=== PATIENT | female | born 1935 | race Caucasian/White ===

== ENCOUNTER 2019-06-11 10:17 | Inpatient (IN) | payer MEDICARE, SELFPAY ==
[2019-06-11] VITALS (50 sets, daily range): BP systolic 119–176; BP diastolic 72–127; PULSE 77–130; RESP 15–26; TEMP 36.6–36.8; O2SAT 18–99; BMI 32.5
--- NOTE | 2019-06-11 10:38 | XRR_ITS ---
PROCEDURE INFORMATION: Exam: XR Chest, 1 View Exam date and time: 06/11/2019 10:40 AM Age: 83 years old Clinical indication: Chest pain TECHNIQUE: Imaging protocol: XR of the chest Views: 1 view. COMPARISON: CR Chest 1 [place] [id number] 02/27/2014 2:37 PM FINDINGS: Lungs: There is mild pulmonary vascular congestion and bilateral perihilar haziness with coarse interstitial markings. Pleural space: No significant pleural effusion. No discernible pneumothorax. Heart/Mediastinum: The cardiac silhouette measures upper limits of normal in size and is unchanged. Bones/joints: There are degenerative changes of the spine and bilateral shoulders.. XR/XR chest 1V portable [id number] IMPRESSION: 1. Pulmonary vascular congestion with bilateral perihilar haziness. Correlate to exclude CHF versus nonspecific lower respiratory tract inflammation. Consider follow-up evaluation in 4-6 weeks to assess for resolution. 2. Findings which can be seen with COPD.
--- NOTE | 2019-06-11 10:38 | ECG_ITS ---
Measurements Intervals [place] Rate: 121 P: [place]: 0 QRS: 31 QRSD: 132 T: 28 QT: 329 QTc: 468 ATRIAL FIBRILLATION WITH RAPID VENTRICULAR RESPONSE INDETERMINATE AXIS INTRAVENTRICULAR CONDUCTION DELAY [130+ ms QRS DURATION] INTERPRETATION BASED ON A DEFAULT AGE OF 40 YEARS No previous ECG available for comparison Electronically Signed On 06-12-2019 17:18:08 APNS by Jonathan Mcmahon M.D. [id number]
--- NOTE | 2019-06-11 10:49 | ED_ITS ---
Entered by Liz Faustin, acting as scribe for Paul Keenan DO Jun 11, 2019 10:17 HPI - Chest Pain General: Chief Complaint: Chest Pain Stated Complaint: Heart is racing Time Seen by Provider: 06/11/19 10:38 History of Present Illness: HPI narrative: Patient came to the ER for complaint of chest pain. She states that she is actually not having pain just feels her heart racing and irregular. Patient's spouse says that she has a history of atrial fibrillation and that Dr. Castillo has spent the past week trying to slow her heart rate and gated regular. MD complaint: chest pain and other Onset (ago): day(s) Timing of current episode: constant Prior episodes: Yes Onset: during rest Pain location: substernal Pain radiation: none Severity: mild Quality: tightness and heaviness Relieving factors: nothing Exacerbating factors: nothing Associated symptoms: Reports dyspnea and palpitations Treatment prior to arrival: none Review of Systems General: Reports: 10 or more systems reviewed and unremarkable except in HPI and below Card: Reports: palpitations, irregular heart rhythm, swelling of feet/ankles, shortness of breath on exertion and shortness of breath when lying down Resp: Reports: shortness of breath PFSH ED PFSH: Statuses (acute, chronic, etc) shown below reflect problem list status as previously entered and may not be historically accurate Medical History CHF (congestive heart failure) (Acute) HTN (hypertension) (Acute) Hyperlipidemia (Acute) Varicose veins of bilateral lower extremities with pain (Acute) Family History Other CAD (coronary artery disease) Cancer Family history of premature coronary artery disease Hypertension Social History Smoking and tobacco status: former smoker Alcohol intake: current Physical Exam Narrative: EXAM NARRATIVE: Patient is awake and alert and does not appear to be in any severe distress Const: COMMON NORMALS: no apparent distress, average body habitus, oriented x3, no limitations, healthy appearing, alert and well nourished HENMT: COMMON NORMALS: normocephalic, head/scalp atraumatic, hearing grossly normal bilaterally, external ears normal, EAC's normal, TM's normal bilaterally, external nose normal, nasal mucous membranes and turbinates normal, moist oral mucous membranes, oropharynx normal, dentition normal and gingiva normal HEAD & SCALP: normocephalic and atraumatic NOSE: external nose normal and nasal mucous membranes and turbinates normal EXTERNAL EAR: Yes external ears normal EXTERNAL AUDITORY CANAL: EAC's normal TYMPANIC MEMBRANE: TM's normal bilaterally Eye: COMMON NORMALS: PERRL, EOMs intact bilaterally, conjunctivae normal, no scleral icterus, no papilledema, normal visual wing by confrontation and fundi normal bilaterally CONJUNCTIVA: Yes conjunctivae normal PUPIL: Yes PERRL DIRECT OPHTHALMOSCOPY: Yes no papilledema and Yes fundi normal bilaterally Neck/C-Spine: COMMON NORMALS: full ROM, no lymphadenopathy, supple, no meningeal signs, no JVD, thyroid normal and no carotid bruits THYROID: thyroid normal Chest: COMMONS NORMALS: inspection of chest normal and palpation of chest normal Resp: COMMON NORMALS: normal respiratory effort, no retractions, no use of accessory muscles, clear to auscultation bilaterally and percussion normal AUSCULTATION: clear to auscultation bilaterally PERCUSSION: percussion normal Cardio: COMMON NORMALS: no JVD, S1 normal heart sound, S2 normal heart sound, no gallops, no clicks, no murmurs, no rub and peripheral pulses 2+ throughout RATE: other (irregularly irregular) RHYTHM: abnormal rhythm irregularly irregular HEART SOUNDS: S1 normal and S2 normal PERIPHERAL PULSES: pulses 2+ throughout GI: COMMON NORMALS: normal to inspection, nondistended, normoactive bowel sounds, soft to palpation, non-tender, no hepatosplenomegaly, no masses and no bruits PALPATION: Yes soft and Yes no hepatosplenomegaly : COMMON NORMALS: Yes no CVA tenderness and Yes external appearance normal BLADDER/KIDNEY EXAM: Yes no CVA tenderness Back/Pelvis: COMMON NORMALS: no CVA tenderness, thoracic and lumbar spine normal to inspection, no thoracic nor lumbar tenderness, thoraco-lumbar ROM normal and straight leg raise negative bilaterally Extremity: COMMON NORMALS: normal to inspection, full ROM, normal capillary refill, no joint enlargement, no clubbing, cyanosis or edema, no calf tenderness and no pedal edema Neuro: COMMON NORMALS: oriented x3 SENSORIUM/ORIENTATION: Yes alert MENINGEAL SIGNS: Yes no meningeal signs Skin: COMMON NORMALS: no rashes or lesions noted, no wounds, skin turgor normal, no jaundice, no petechiae and no mottling GENERAL SKIN EXAM: no rashes or lesions noted and turgor normal Course Vital Signs: Vital signs: Vital Signs Pulse Rate 110 H 06/11/19 10:30 Respiratory Rate 18 06/11/19 10:30 Blood Pressure 175/127 06/11/19 10:30 Pulse Oximetry 96 06/11/19 10:30 MDM - Chest Pain Lab Data: Labs: Lab Results 06/11/19 06/11/19 06/11/19 Range/Units 10:44 10:44 10:44 WBC 6.1 (4.0-10.0) 10^3/ uL RBC 4.52 (4.1-5.3) 10^6/u L Hgb 13.9 (11.5-15.3) g/dL Hct 43.0 (37.0-47.0) % MCV 95.1 (81-99) fL MCH 30.8 (28.0-34.0) pg MCHC 32.3 (30.0-36.0) g/dL RDW 12.5 (12.1-15.1) % Plt Count 204 (130-400) 10^3/c mm MPV 11.0 H (7.4-10.4) fL Neut % (Auto) 71.3 % Lymph % (Auto) 19.1 % Gaines % (Auto) 7.8 % Eos % (Auto) 1.3 % Baso % (Auto) 0.3 % Neut # (Auto) 4.4 (1.8-7.7) 10^3/u L Lymph # (Auto) 1.2 (0.8-4.8) 10^3/u L Gaines # (Auto) 0.5 (0.2-0.9) 10^3/u L Eos # (Auto) 0.1 (0.0-0.8) 10^3/u L Baso # (Auto) 0.0 (0.0-0.1) 10^3/u L Nucleated RBC % (a uto) 0 % Nucleated RBCs # 0.0 /100WBC Sodium 138 (136-145) mmol/L Potassium 4.4 (3.5-5.1) mmol/L Chloride 102 (98-107) mmol/L Carbon Dioxide 25 (22-29) mmol/L Anion Gap 15.4 (5-19) BUN 16 (8-23) mg/dL Creatinine 1.0 H (0.5-0.9) mg/dL Glucose 128 H (74-106) mg/dL Calcium 9.9 (8.8-10.2) mg/Dl Total Bilirubin 0.6 (0.15-1.2) mg/dL AST 25 (0-32) U/L ALT 21 (0-33) U/L Alkaline Phosphata se 81 (35-105) IU/L Troponin T Baselin e 21 H (0-10) ng/mL NT-Pro-B Natriuret Pep 2310 H (0-450) pg/mL Total Protein 7.5 (6.6-8.7) g/dL Albumin 4.4 (3.5-5.2) g/dL Globulin 3.1 (1.3-4.6) g/dL Imaging Data^: CXR: My impression: CHF; Cardiomegaly Discharge Plan Discharge Prescriptions: No Action Xarelto 20 mg tablet 20 mg PO ONCE RF: 0 levothyroxine 25 mcg capsule 25 mcg PO DAILY RF: 0 spironolactone 25 mg tablet 25 mg PO DAILY RF: 0 furosemide [Lasix] 20 mg tablet 10 mg PO QAM RF: 0 carvedilol 12.5 mg tablet 12.5 mg PO BID RF: 0 flecainide 50 mg tablet 50 mg PO Q12H RF: 0 atorvastatin 40 mg tablet 40 mg PO ONCE RF: 0 potassium chloride [Klor-Con 10] 10 mEq tablet extended release 10 meq PO DAILY RF: 0 flecainide 100 mg tablet 100 mg PO DIRECTED 30 Days Qty: 60 RF: 3 Coding Level of Care Code ED Boiler House Supervisor for Chg Fwd Exam Problem Focused The documentation recorded by the [place] Carmen, accurately reflects the service I personally performed and the decisions made by Shlomo gurrola Donald P, DO Jun 11, 2019 10:17
[2019-06-11 10:54] LABS: Basophils % 0.3 %; Eosinophils # 0.1 10^3/uL (0.0-0.8); Eosinophils % 1.3 %; Hemoglobin 13.9 g/dL (11.5-15.3); Lymphocytes # 1.2 10^3/uL (0.8-4.8); Lymphocytes % 19.1 %; Mean Corpuscular HGB Conc 32.3 g/dL (30.0-36.0); Mean Corpuscular Hemoglobin 30.8 pg (28.0-34.0); Mean Corpuscular Volume 95.1 fL (81-99); Monocytes # 0.5 10^3/uL (0.2-0.9); Monocytes % 7.8 %; Neutrophils # 4.4 10^3/uL (1.8-7.7); Neutrophils % 71.3 %; Nucleated Red Blood Cells % 0 %; Platelet Count 204 10^3/cmm (130-400); Red Blood Count 4.52 10^6/uL (4.1-5.3); Red Cell Distribution Width 12.5 % (12.1-15.1); White Blood Count 6.1 10^3/uL (4.0-10.0)
[2019-06-11 11:17] LABS: Troponin(5th) Baseline 21 ng/mL (0-10)
[2019-06-11 11:26] LABS: Alanine Aminotransferase 21 U/L (0-33); Albumin Level 4.4 g/dL (3.5-5.2); Alkaline Phosphatase 81 IU/L (35-105); Anion Gap 15.4 (5-19); Aspartate Amino Transferase 25 U/L (0-32); Blood Urea Nitrogen 16 mg/dL (8-23); Calcium 9.9 mg/Dl (8.8-10.2); Carbon Dioxide 25 mmol/L (22-29); Chloride 102 mmol/L (98-107); Globulin 3.1 g/dL (1.3-4.6); Glucose 128 mg/dL (74-106); NT Pro B Type Natriuretic Pept 2310 pg/mL (0-450); Potassium 4.4 mmol/L (3.5-5.1); Sodium 138 mmol/L (136-145); Total Bilirubin 0.6 mg/dL (0.15-1.2); Total Protein 7.5 g/dL (6.6-8.7)
--- NOTE | 2019-06-11 11:56 | PC.NURSE ---
Pt ambulated to BR with SBA to give urine sample. Clean catch kit given with instructions provided.
--- NOTE | 2019-06-11 12:38 | ECG_ITS ---
Measurements Intervals [place] Rate: 104 P: [place]: 0 QRS: 36 QRSD: 114 T: 50 QT: 366 QTc: 483 ATRIAL FIBRILLATION WITH RAPID VENTRICULAR RESPONSE INDETERMINATE AXIS MODERATE INTRAVENTRICULAR CONDUCTION DELAY [110+ ms QRS DURATION] MODERATE ST DEPRESSION [0.05+ mV ST DEPRESSION] No previous ECG available for comparison Electronically Signed On 06-12-2019 17:26:13 MELT HOUSE DRAG OPERATOR by Jonathan Mcmahon M.D. [id number]
[2019-06-11 13:22] LABS: Troponin 5 2HR 19.88 ng/mL (0-10)
[2019-06-11 13:25] LABS: Troponin 5 2HR Delta -1.12 ABS# (0-10)
[2019-06-11 13:37] LABS: Add Urine Microscopic? YES; Bilirubin Urine Neg (NEGATIVE); Blood Urine 2+ (Negative); Glucose Urine UA Norm (Normal); Ketones Urine Negative (Negative); Leukocyte Esterase Urine Negative (Negative); Nitrate Urine Negative (Negative); Protein Urine Neg (Negative); Urine Appearance Clear (CLEAR); Urine Color Yellow (Yellow); Urobilinogen Urine Norm (Negative); pH Urine 6 (5-7)
[2019-06-11 13:39] LABS: Add Urine Culture? Yes; Bacteria Urine 1+; WBC Urine 0-4 /hpf (0-5)
--- NOTE | 2019-06-11 16:38 | ECG_ITS ---
Measurements Intervals [place] Rate: 91 P: [place]: 0 QRS: 47 QRSD: 109 T: 60 QT: 391 QTc: 483 ATRIAL FIBRILLATION INDETERMINATE AXIS MODERATE ST DEPRESSION [0.05+ mV ST DEPRESSION] No previous ECG available for comparison Electronically Signed On 06-12-2019 17:26:27 CREDIT NEGOTIATOR by Jonathan Mcmahon M.D. [id number]
[2019-06-11 17:30] LABS: Troponin 5 6HR 16.66 ng/L (0-10)
[2019-06-11 17:53] LABS: Troponin 5 6HR Delta -4.34 ng/L (0-12)
--- NOTE | 2019-06-11 18:22 | PM.HP ---
Providers/Chief Complaint Admitting Physician: Ca Walsh MD Primary Care Provider: Gurwinder Cotton MD Chief Complaint: Heart is racing History of Present Illness Karime Cisse is a 83 year old female with PMH uncontrolled atrial fibrillation, diastolic CHF, hypertension who was recently seen as an outpatient by cardiology on May for c/o palpitations and subjective shortness of breath. At the time she appeared to be in A. fib with fast ventricular response @ 116 bpm. EKG was also performed today which showed A. fib with rapid ventricular response. She c/o subjective SOB and chest discomfort during times of increased HR. She feels most comfortbale when HR is up to 90bpm. She denies PND orthopnea presyncope or syncope. She is on anticoagulation with Xarelto. On last visit her dose of flecainide was increased to three times a day, and through the week, she reports this has been increased to 5 times a day as instructed by the office over the phone. Denies any current chest pain, dyspnea. Review of Systems General: Reports: 10 or more systems reviewed and unremarkable except in HPI and below Const: Denies: fever, chills or body aches Card: Reports: palpitations and irregular heart rhythm; Denies: chest pain, edema, swelling of feet/ankles, lightheadedness, syncope or shortness of breath on exertion Resp: Denies: shortness of breath, productive cough, non-productive cough, wheezing or stridor GI: Denies: abdominal pain, nausea, vomiting, vomiting blood, coffee grounds in vomit or difficulty swallowing : Denies: flank pain, difficulty urinating, painful urination or urinary frequency Neuro: Denies: headache, numbness in extremities, weakness in extremities, changes in sensation, lack of coordination or difficulty walking Psych: Denies: anxiety, depression or mood swings Endo: Denies: excessive urination, excessive thirst or tired all the time Medications/Allergies Allergies Allergy/AdvReac Type Severity Reaction Status Date / Time codeine Allergy ALGY-Difficulty Verified 06/11/19 10:32 [From [employer] with Codeine] Breathing pseudoephedrine Allergy ALGY-Difficulty Verified 06/11/19 10:32 [From Sudafed] Breathing PFSH Acute PFSH: Statuses (acute, chronic, etc) shown below reflect problem list status as previously entered and may not be historically accurate Medical History CHF (congestive heart failure) (Acute) HTN (hypertension) (Acute) Hyperlipidemia (Acute) Varicose veins of bilateral lower extremities with pain (Acute) Family History Other CAD (coronary artery disease) Cancer Family history of premature coronary artery disease Hypertension Social History Smoking and tobacco status: former smoker Alcohol intake: current Vitals/I&O/Wt Last Vital Signs Pulse 83 06/11/19 17:45 Resp 19 H 06/11/19 16:00 BP 142/95 06/11/19 16:00 Pulse Ox 98 06/11/19 17:45 06/11/19 06/11/19 06/11/19 06:59 14:59 22:59 Intake Total 68.333 / 68.333 Balance 68.333 / 68.333 Weight last 48 hrs Weight 99.79 kg Physical Exam Const: COMMON NORMALS: no apparent distress, average body habitus, oriented x3 and alert HENMT: COMMON NORMALS: normocephalic and head/scalp atraumatic Eye: COMMON NORMALS: PERRL and EOMs intact bilaterally Chest: COMMONS NORMALS: inspection of chest normal and palpation of chest normal Resp: COMMON NORMALS: normal respiratory effort, no retractions, no use of accessory muscles and clear to auscultation bilaterally Cardio: COMMON NORMALS: no JVD, regular rate, regular rhythm, S1 normal heart sound, S2 normal heart sound and no gallops GI: COMMON NORMALS: normal to inspection, nondistended, normoactive bowel sounds, soft to palpation and non-tender Neuro: COMMON NORMALS: oriented x3, CN's II-XII intact bilaterally, moves all extremities, no focal motor deficits, no sensory deficits noted, deep tendon reflexes 2+ bilaterally and gait normal Psych: COMMON NORMALS: mental status grossly normal and thought process normal Data : 06/11/19 10:44 06/11/19 10:44 A&P Assessment and plan (1) Atrial fibrillation: Chronic, long standing Patient has been started on Cardizem infusion in the ED. Currently at 10mg/hr, with HR 70-80. BP 140/95mmhg. Will titrate as needed No complaints at current HR, states she starts to feel symptomatic at HR 120s Continue home dose of carvedilol and Flecainide Continue Xarelto for anticoagulation Troponin minimally elevated likely 2/2 RVR. No current chest pain Status: Acute Qualifiers: Atrial fibrillation type: unspecified persistent Qualified Code(s): I48.19 - Other persistent atrial fibrillation Code(s): I48.91 - Unspecified atrial fibrillation (2) CHF (congestive heart failure): Currently appears euvolemic. Status: Acute Qualifiers: Heart failure type: combined systolic and diastolic Heart failure chronicity: acute Qualified Code(s): I50.41 - Acute combined systolic (congestive) and diastolic (congestive) heart failure Code(s): I50.9 - Heart failure, unspecified (3) HTN (hypertension): Status: Acute Qualifiers: Hypertension type: essential hypertension Qualified Code(s): I10 - Essential (primary) hypertension Code(s): I10 - Essential (primary) hypertension Attestations Medical Necessity Statement*: anticipate > 2 midnight for management of A fib with RVR, HR optimization Coding Level of Care Code Acute Terrazzo Tile Maker for Chg Fwd Diagnoses Atrial fibrillation I48.19 Atrial fibrillation type: unspecified persistent CHF (congestive heart failure) I50.41 Heart failure type: combined systolic and diastolic Heart failure chronicity: acute HTN (hypertension) I10 Hypertension type: essential hypertension
[2019-06-11] MEDS: carvedilol 12.5 mg Tablet PO (20:54)
[2019-06-11] MEDS: flecainide 100 mg Tablet 50 MG PO (20:54)
--- NOTE | 2019-06-11 23:36 | PC.NURSE ---
Cardizem drip shut off at 2300. Patient's heart rate has been in the 80s in a-fib.
[2019-06-12] VITALS (7 sets, daily range): BP systolic 92–150; BP diastolic 44–94; PULSE 58–125; RESP 17–26; TEMP 36.4–36.8; O2SAT 95–98
[2019-06-12] MEDS: flecainide 100 mg Tablet 50 MG PO ×2 (05:13→11:49)
[2019-06-12] MEDS: FUROsemide 20 mg Tablet 10 MG PO (05:13)
[2019-06-12 08:02] LABS: Basophils % 0.5 %; Eosinophils # 0.1 10^3/uL (0.0-0.8); Hematocrit 45.1 % (37.0-47.0); Hemoglobin 14.7 g/dL (11.5-15.3); Lymphocytes # 1.2 10^3/uL (0.8-4.8); Lymphocytes % 19.9 %; Mean Corpuscular HGB Conc 32.6 g/dL (30.0-36.0); Mean Corpuscular Hemoglobin 31.8 pg (28.0-34.0); Mean Corpuscular Volume 97.6 fL (81-99); Mean Platelet Volume 11.1 fL (7.4-10.4); Monocytes # 0.5 10^3/uL (0.2-0.9); Monocytes % 8.9 %; Neutrophils # 4.1 10^3/uL (1.8-7.7); Neutrophils % 68.5 %; Nucleated Red Blood Cells % 0 %; Platelet Count 194 10^3/cmm (130-400); Red Blood Count 4.62 10^6/uL (4.1-5.3); Red Cell Distribution Width 12.6 % (12.1-15.1); White Blood Count 5.9 10^3/uL (4.0-10.0)
[2019-06-12 08:05] LABS: Alanine Aminotransferase 16 U/L (0-33); Alkaline Phosphatase 79 IU/L (35-105); Aspartate Amino Transferase 20 U/L (0-32); Blood Urea Nitrogen 11 mg/dL (8-23); Calcium 9.8 mg/Dl (8.8-10.2); Carbon Dioxide 27 mmol/L (22-29); Chloride 101 mmol/L (98-107); Globulin 3.1 g/dL (1.3-4.6); Glucose 115 mg/dL (74-106); Sodium 138 mmol/L (136-145); Total Bilirubin 0.7 mg/dL (0.15-1.2); Total Protein 7.1 g/dL (6.6-8.7)
[2019-06-12] MEDS: rivaroxaban 10 mg Tablet 20 MG PO (09:49)
[2019-06-12] MEDS: spironolactone 25 mg Tablet PO (09:49)
[2019-06-12] MEDS: levothyroxine 25 mcg Tablet PO (09:49)
[2019-06-12] MEDS: carvedilol 12.5 mg Tablet PO (09:50)
--- NOTE | 2019-06-12 09:50 | PM.PN ---
Subjective Subjective: Interval history: Patient states she is feeling little bit better. Heart is not racing as bad. No chest pain or shortness of breath. No fevers or chills. Vitals/I&O/Wt Last Vital Signs Temp 98.0 F 06/12/19 07:13 Pulse 111 H 06/12/19 07:13 Resp 17 06/12/19 07:13 BP 126/78 06/12/19 07:13 Pulse Ox 97 06/12/19 07:13 06/11/19 06/12/19 06/12/19 22:59 06:59 14:59 Intake Total 90.000 / 190.000 100 / 190.000 Balance 90.000 / 190.000 100 / 190.000 Weight last 48 hrs Weight 220 lb Physical Exam Narrative: EXAM NARRATIVE: General: No acute distress, Alert. Well nourished. Heart: Atrial fibrillation with a tachycardic rate. No murmurs, rubs or gallops. Normal capillary refill. Lungs: Clear to auscultation. No wheezes, rhonchi or rales. Abdomen: Positive bowel sounds. Non-tender, non-distended. No hepatosplenomegaly. No gaurding. Extremities: No clubbing, cyanosis, or edema. Negative Fareed's Data : 06/12/19 07:35 06/12/19 07:35 Micro: Microbiology 06/11/19 12:07 Urine Culture - Preliminary Urine,Clean Catch A&P Assessment and plan (1) Atrial fibrillation: -Looks like patient is been weaned off the Cardizem drip but still having heart rates of 1 10-1 20. We will go ahead and consult cardiology to manage her treatment of this. Disposition per their recommendations. Status: Acute Qualifiers: Atrial fibrillation type: unspecified persistent Qualified Code(s): I48.19 - Other persistent atrial fibrillation Code(s): I48.91 - Unspecified atrial fibrillation (2) CHF (congestive heart failure): Stable Status: Acute Qualifiers: Heart failure type: combined systolic and diastolic Heart failure chronicity: acute Qualified Code(s): I50.41 - Acute combined systolic (congestive) and diastolic (congestive) heart failure Code(s): I50.9 - Heart failure, unspecified (3) HTN (hypertension): Status: Acute Qualifiers: Hypertension type: essential hypertension Qualified Code(s): I10 - Essential (primary) hypertension Code(s): I10 - Essential (primary) hypertension Attestations Medical Necessity Statement*: patient is an 83-year-old female with A. fib with RVR requiring continued inpatient treatments and monitoring. Coding Level of Care Code Acute Stack Yield Engineer for Chg Fwd Diagnoses Atrial fibrillation I48.19 Atrial fibrillation type: unspecified persistent CHF (congestive heart failure) I50.41 Heart failure type: combined systolic and diastolic Heart failure chronicity: acute HTN (hypertension) I10 Hypertension type: essential hypertension
--- NOTE | 2019-06-12 09:52 | P.CONIM_ITS ---
Providers/Reason For Consult Consulting Physican/Specialty*: Jai Lambert MD/cardiology Reason for Consult*: Atrial fibrillation/rapid ventricular rate Attending Physician: Amaury Carranza MD Primary Care Provider: Gurwinder Cotton MD History of Present Illness History of Present Illness Karime Cisse is a 83 year old female with a history of hypertension, atrial fibrillation and varicose veins, is admitted to the hospital through the emergency room, where she presented with complaints of palpitations/generalized weakness. Patient was found to be in atrial fibrillation with rapid ventricular rate. She has been taking a fairly high dose of flecainide as an outpatient. She was started on IV Cardizem here in the hospital. Her heart rate still remains uncontrolled. Cardiology consult is requested for further cardiac evaluation recommendations. Patient was diagnosed with atrial fibrillation approximately 14 years ago. She has been taking flecainide 50 mg p.o. twice daily up until recently when she was found to be in atrial fibrillation by Dr. Mosquera. The dose of the flecainide was increased gradually. Currently she is taking 250 mg of flecainide. He never had any radiofrequency ablation or electrical cardioversion. Since the hospital admission, she seems to be feeling somewhat better. Has not had any dizziness or syncopal episodes. No chest pain or unusual shortness of breath. She has a history of varicose veins and had sclerotherapy couple of years ago. Review of Systems Const: Reports: other (Anorexia); Denies: fever, chills, change in appetite, fatigue or night sweats Eyes: Denies: change in vision, blurry vision or eye discomfort ENMT: Denies: bleeding gums, nose bleeds or other (Spinning Sensation, Trouble Swallowing) Card: Denies: syncope, pre-syncope, shortness of breath when lying down or leg pain with exertion Resp: Denies: productive cough, change in phlegm color or coughing up blood GI: Denies: vomiting, vomiting blood, bloating, blood in stool or black tarry stool : Denies: blood in urine or vaginal bleeding Musc: Denies: neck pain, extremity pain, extremity swelling, redness, muscle cramps, muscle weakness or other (Neck Pain or Swollen Glands) Skin/Breast: Denies: rash, itching, redness, new lesion, changes in skin color, yellow skin, nail changes or breast mass/lump Neuro: Denies: headache, changes in sensation, lack of coordination, frequent falls, dizziness, vertigo, seizure-like activity or other (TIA, Numbness) Psych: Reports: other (Delusions, Disorientation, or Insomnia); Denies: visual hallucinations, auditory hallucinations or tactile hallucinations Endo: Denies: excessive urination, excessive thirst or other (Abnormal Hair Loss) Harsh/Lymph: Denies: easy bruising All/Imm: Denies: hives Meds/Allergies Home Medications and Allergies Home Medications Medication Instructions Recorded Confirmed Type carvedilol 12.5 mg tablet 12.5 mg PO BID 06/01/19 06/11/19 History flecainide 50 mg tablet 50 mg PO Q12H 06/01/19 06/11/19 History furosemide 20 mg tablet 10 mg PO QAM 06/01/19 06/11/19 History levothyroxine 25 mcg capsule 25 mcg PO DAILY cap 06/01/19 06/11/19 History potassium chloride 10 mEq 10 meq PO DAILY tab 06/01/19 06/11/19 History tablet,extended release rivaroxaban 20 mg tablet 20 mg PO DAILY 06/01/19 06/11/19 History spironolactone 25 mg tablet 25 mg PO DAILY tab 06/01/19 06/11/19 History Allergies Allergy/AdvReac Type Severity Reaction Status Date / Time codeine Allergy ALGY-Difficulty Verified 06/11/19 10:32 [From [employer] with Codeine] Breathing pseudoephedrine Allergy ALGY-Difficulty Verified 06/11/19 10:32 [From Sudafed] Breathing Current Medications Current Medications Generic Name Dose Route Start Last Admin Trade Name Марина PRN Reason Stop Dose Admin Carvedilol 12.5 mg 06/11/19 20:44 06/12/19 09:50 Coreg PO 12.5 mg BID NINFA Administration Flecainide Acetate 50 mg 06/11/19 20:30 06/12/19 05:13 Tambocor PO 50 mg Q8H NINFA Administration Furosemide 10 mg 06/12/19 06:00 06/12/19 05:13 Lasix PO 10 mg QAM NINFA Administration Diltiazem HCl 125 mg/ Sodium 125 mls @ 10 mls/hr 06/11/19 11:00 06/12/19 05:11 Chloride IV Not Given .[id number] NINFA Protocol 10 MG/HR Levothyroxine Sodium 25 mcg 06/12/19 09:00 06/12/19 09:49 Synthroid PO 25 mcg DAILY NINFA Administration Spironolactone 25 mg 06/12/19 09:00 06/12/19 09:49 Aldactone PO 25 mg DAILY NINFA Administration PFSH Acute PFSH: Statuses (acute, chronic, etc) shown below reflect problem list status as previously entered and may not be historically accurate Medical History CHF (congestive heart failure) (Acute) HTN (hypertension) (Acute) Hyperlipidemia (Acute) Varicose veins of bilateral lower extremities with pain (Acute) Surgical History (Updated 06/12/19 @ 18:12 by Alida Lambert MD) H/O knee surgery (Acute) Hx of cholecystectomy (Acute) Status post ablation of incompetent vein using laser (Acute) Family History (Updated 06/13/19 @ 00:32 by Alida Lambert MD) Father CAD (coronary artery disease) Having heart follow-up in his 60s. Family/Other CAD (coronary artery disease) Dad's brother had a heart attack in his 30s Son Atrial fibrillation, Onset Age: 35 Other Cancer Family history of premature coronary artery disease Hypertension Social History Smoking and tobacco status: former smoker Alcohol intake: current Vitals/I&O/Wt Last Vital Signs Temp 98.0 F 06/12/19 07:13 Pulse 111 H 06/12/19 07:13 Resp 17 06/12/19 07:13 BP 126/78 06/12/19 07:13 Pulse Ox 97 06/12/19 07:13 06/11/19 06/12/19 06/12/19 22:59 06:59 14:59 Intake Total 90.000 / 90.000 100 / 190.000 Balance 90.000 / 90.000 100 / 190.000 Weight last 48 hrs Weight 220 lb Physical Exam Const: COMMON NORMALS: oriented x3, alert and well nourished GENERAL APPEARANCE: cooperative, well developed and well hydrated; not in distress HENMT: MOUTH: lip normal; no other (ulcers or bleeding) TEETH & GINGIVA: no other (bleeding observed and inflammation present) Eye: COMMON NORMALS: conjunctivae normal CONJUNCTIVA: Yes conjunctivae normal SCLERA: sclerae normal DIRECT OPHTHALMOSCOPY: Yes other (Fundus is not visualized) Neck/C-Spine: COMMON NORMALS: thyroid normal THYROID: thyroid normal CAROTIDS: Yes normal carotid upstroke (and runoff) Chest: COMMONS NORMALS: inspection of chest normal Resp: COMMON NORMALS: clear to auscultation bilaterally EFFORT & INSPECTION: Yes symmetric chest movement and No uses accessory muscles AUSCULTATION: clear to auscultation bilaterally, no crackles and no wheezes Cardio: COMMON NORMALS: regular rate and regular rhythm PALPATION: no heave, no palpable S3 and no thrill RATE: regular rate RHYTHM: regular rhythm BRUITS: no abdominal aortic bruits PERIPHERAL PULSES: femoral pu lses present positive bilateral (Normal), posterior tibial pulses present positive bilateral (Normal) and dorsalis pedis pulses present positive bilateral (Normal) GI: AUSCULTATION: Yes normoactive bowel sounds and No abdominal bruit PALPATION: No tender, No hepatomegaly, No splenomegaly and No mass Back/Pelvis: GENERAL BACK: No swelling and No other (joint deformities) THORACIC SPINE/UPPER BACK: No kyphosis present LUMBAR SPINE/LOWER BACK: No lumbar scoliosis present Extremity: OTHER: Features of chronic venous stasis. Spider veins in both legs. Trace edema bilaterally. No cyanosis. Neuro: COMMON NORMALS: oriented x3; negative for no focal motor deficits SENSORIUM/ORIENTATION: Yes alert MOTOR EXAM: No tremor Psych: MOOD & AFFECT: Yes other (Normal mood and affect) Skin: COMMON NORMALS: skin turgor normal; negative for no petechiae GENERAL SKIN EXAM: turgor normal, skin not dry and no erythema RASHES: rash noted NAILS: normal, no clubbing, not discolored and no other (cyanosis) Data Micro: Micro: Microbiology 06/11/19 12:07 Urine Culture - Pr eliminary Urine,Clean Catch A&P Assessment and plan (1) Atrial fibrillation with rapid ventricular response: Because of the rapid ventricular rate, I may start her on metoprolol 50 mg now and twice daily. Patient may be continued on the flecainide 150 mg p.o. twice daily. She needs to be closely monitored on telemetry. Other medication will be continued as it is. Status: Acute Code(s): I48.91 - Unspecified atrial fibrillation (2) HTN (hypertension): Current blood pressure is a stage II. Hopefully with the medication changes, we may have better control of the blood pressure. Status: Acute Qualifiers: Hypertension type: essential hypertension Qualified Code(s): I10 - Essential (primary) hypertension Code(s): I10 - Essential (primary) hypertension (3) Hyperlipidemia: Patient was taken off the atorvastatin recently for possible statin induced muscle pains, by may hold off on any statin drugs at this time. Status: Acute Qualifiers: Hyperlipidemia type: mixed hyperlipidemia Qualified Code(s): E78.2 - Mixed hyperlipidemia Code(s): E78.5 - Hyperlipidemia, unspecified (4) CHF (congestive heart failure): Patient was found to have elevated BNP of 2310. Was likely this is secondary to the atrial fibrillation. 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 She may not require any specific intervention at this time. Status: Acute Code(s): I83.813 - Varicose veins of bilateral lower extremities with pain Additional A&P Information Based on the clinical response to the above medication changes, further recommendations will be made. Thank you for the opportunity to evaluate this patient and make these recommendations Consult Attestations Medical Necessity Statement: Patient requires continued hospital stay for close monitoring and further management Coding Level of Care Code Acute User Experience Analyst for [facility] Fwd Exam Problem Focused Diagnoses Atrial fibrillation with rapid ventricular response I48.91 HTN (hypertension) I10 Hypertension type: essential hypertension Hyperlipidemia E78.2 Hyperlipidemia type: mixed hyperlipidemia CHF (congestive heart failure) I50.41 Heart failure chronicity: acute 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
[2019-06-12] MEDS: acetaminophen 500 mg Tablet PO (10:06)
--- NOTE | 2019-06-12 18:42 | PC.CHAP ---
Pastoral Care Encounter/Spiritual Assessment Type of Contact [] Declined plumbing manager visit [] Patient/Family/Request visit [] Outpatient visit [] Follow-up visit [] Physician referral [] Code/Alert [x] Routine visit [] Staff referral [] Actively dying [] Patient sleeping [x] Family support [] [] Out of room [] Palliative care [] [] Receiving care in room [] Pre-surgical visit [] Trauma [] Long length of stay [] ICU visit [] Other: Relational/Emotional Strength [x] Patient feels connected with others/family/visitors/staff [] Distress [] Loneliness/isolation [] Abandonment Spirituality of Patient [x] Person of [place] [] Attends Sabianism of their [place] [x] Believes in Prayer [] Reads Bible or Yazidism materials [] There are Spiritual issues to be addressed Houseperson Interventions [x] Prayer [x] Active listening [x] Non-anxious presence [x] Spiritual/emotional support [] Crisis/trauma care [] Spiritual counseling [] Bereavement support [] Provided bereavement packet [] Provided Bible/devotional materials [] Provided toy/stuffed animal, coloring book to patient or family member [x] Completed spiritual assessment [] Provided Communion [] Anointing/[place] [] Salvation [] Other: Impact on Illness or Injury [] Angry [] Fearful [] Anxious [] Often cries [] Exhaustion [] Unable to work [] Unable to attend christian [] Unable to walk/stand [] Unable to read [] Unable to drive [] Unable to eat/drink [] Unable to sleep [] Unable to be with family [] Other: Summary Patient seemed to be in good spirit. Had good family support system in the room. Visited and prayed with patient and family. Patient visited by Houseperson Ang Kim Time spent with patient 10 minutes
[2019-06-12] MEDS: metoprolol tartrate 50 mg Tablet PO (18:54)
[2019-06-12] MEDS: flecainide 100 mg Tablet 150 MG PO (23:32)
[2019-06-13] VITALS (8 sets, daily range): BP systolic 125–160; BP diastolic 72–91; PULSE 78–109; RESP 14–22; TEMP 36.3–37.1; O2SAT 94–98
[2019-06-13] MEDS: FUROsemide 20 mg Tablet 10 MG PO (06:07)
--- NOTE | 2019-06-13 08:48 | PM.PN ---
Subjective Subjective: Interval history: The patient is feeling better at this time. She continues to have A. fib and medications are being adjusted by cardiology. The patient denies any chest pains or shortness of breath at this time. Overall she is feeling better compared to admission. Vitals/I&O/Wt Last Vital Signs Temp 98.7 F 06/13/19 07:00 Pulse 87 06/13/19 07:00 Resp 20 H 06/13/19 07:00 BP 148/91 06/13/19 07:00 Pulse Ox 94 06/13/19 07:00 06/12/19 06/13/19 06/13/19 22:59 06:59 14:59 Intake Total 400 / 760 Balance 400 / 760 Weight last 48 hrs Weight 99.79 kg Physical Exam Narrative: EXAM NARRATIVE: General: Alert and oriented x3 Cardiac: Tachycardia with regular rate and rhythm Lungs: Clear to auscultation bilaterally without wheezes, crackles or rhonchi Abdomen: Soft, nontender without hepatosplenomegaly Extremities: Trace edema in the bilateral lower extremities Data : 06/12/19 07:35 06/12/19 07:35 Micro: Microbiology 06/11/19 12:07 Urine Culture - Preliminary Urine,Clean Catch A&P Additional A&P Information 1. A. fib with RVR -the patient's heart rate is improving, however she continues to need optimization of her current medications. Continue with recommendations per cardiology. Possible discharge home in the next 1 to 2 days. 2. Hypertension -her blood pressure is stable. 3. 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 Attestations Medical Necessity Statement*: The patient continues need inpatient care as her medications are optimized to treat her atrial fibrillation with RVR. Coding Level of Care Code Acute Experience Specialist for [facility]
[2019-06-13] MEDS: spironolactone 25 mg Tablet PO (09:53)
[2019-06-13] MEDS: metoprolol tartrate 50 mg Tablet PO ×2 (09:53→17:54)
[2019-06-13] MEDS: rivaroxaban 10 mg Tablet 20 MG PO (09:53)
[2019-06-13] MEDS: levothyroxine 25 mcg Tablet PO (09:54)
[2019-06-13] MEDS: flecainide 100 mg Tablet 150 MG PO (13:55)
--- NOTE | 2019-06-13 18:35 | P.PN_ITS ---
Subjective Subjective: Interval history: Patient goes in and out of A. fib heart rate is getting under control. Flecainide was increased last night to 150mg twice a day. Vitals/I&O/Wt Last Vital Signs Temp 98.7 F 06/13/19 17:59 Pulse 109 H 06/13/19 17:59 Resp 18 06/13/19 17:59 BP 160/89 06/13/19 17:59 Pulse Ox 95 06/13/19 17:59 06/13/19 06/13/19 06/13/19 06:59 14:59 22:59 Intake Total 400 / 760 240 / 240 240 / 480 Balance 400 / 760 240 / 240 240 / 480 Physical Exam Narrative: EXAM NARRATIVE: GENERAL: Patient is alert, awake and oriented x3. NECK: No jugular vein distension. HEENT: No cyanosis. No icterus. No pallor. HEART: Irregularly irregular S1 and S2. No murmur, rub or gallop. LUNGS: Decreased breath sound bilaterally. ABDOMEN: Soft, nontender and nondistended. Positive bowel sounds. No guarding, rebound or tenderness. CENTRAL NERVOUS SYSTEM: Grossly nonfocal. EXTREMITIES: Lower extremities without edema bilaterally. Data : 06/12/19 07:35 06/12/19 07:35 Micro: Microbiology 06/11/19 12:07 Urine Culture - Final Urine,Clean Catch A&P Assessment and plan (1) Atrial fibrillation with rapid ventricular response: Flecainide and metoprolol was optimize. I will increase further metoprolol to 75 mg Status: Acute Code(s): I48.91 - Unspecified atrial fibrillation (2) HTN (hypertension): Continue optimizing medicine. Hopefully blood pressure further improved Status: Acute Qualifiers: Hypertension type: essential hypertension Qualified Code(s): I10 - Essential (primary) hypertension Code(s): I10 - Essential (primary) hypertension (3) Hyperlipidemia: Patient is not on statin due to Intolerance. Status: Acute Qualifiers: Hyperlipidemia type: mixed hyperlipidemia Qualified Code(s): E78.2 - Mixed hyperlipidemia Code(s): E78.5 - Hyperlipidemia, unspecified (4) CHF (congestive heart failure): We'll gently diurese her Status: Acute Qualifiers: Heart failure type: combined systolic and diastolic Heart failure chronicity: acute Qualified Code(s): I50.41 - Acute combined systolic (congestive) and diastolic (congestive) heart failure Code(s): I50.9 - Heart failure, unspecified (5) Varicose veins of bilateral lower extremities with pain: Status post venous ablation/sclerotherapy. She stable.. Status: Acute Code(s): I83.813 - Varicose veins of bilateral lower extremities with pain Additional A&P Information Based on the clinical response to the above medication changes, further recommendations will be made. Thank you for the opportunity to evaluate this patient and make these recommendations Attestations Medical Necessity Statement*: Patient regarding continuation hospitalization for above defined care. Coding Level of Care Code Acute Nurse Companion for [facility] Fwd History Expanded Problem Focused Exam Expanded Problem Focused Medical Decision Making Moderate Complexity Diagnoses Atrial fibrillation with rapid ventricular response I48.91 HTN (hypertension) I10 Hypertension type: essential hypertension Hyperlipidemia E78.2 Hyperlipidemia type: mixed hyperlipidemia CHF (congestive heart failure) I50.41 Heart failure type: combined systolic and diastolic Heart failure chronicity: acute Varicose veins of bilateral lower extremities with pain I83.813
[2019-06-13] MEDS: metoprolol tartrate 25 mg Tablet PO (18:43)
[2019-06-14] MEDS: flecainide 100 mg Tablet 150 MG PO ×2 (01:07→12:16)
--- NOTE | 2019-06-14 03:40 | ECG_ITS ---
Measurements Intervals [place] Rate: 55 P: 76 [place]: 273 QRS: 62 QRSD: 121 T: 57 QT: 470 QTc: 452 SINUS BRADYCARDIA WITH FIRST DEGREE AV BLOCK INDETERMINATE AXIS MODERATE INTRAVENTRICULAR CONDUCTION DELAY [110+ ms QRS DURATION] Compared to ECG 06/11/2019 17:36:34 First degree AV block now present Intraventricular conduction delay now present Atrial fibrillation no longer present ST (T wave) deviation no longer present Electronically Signed On 06-14-2019 20:33:32 AIRPLANE CABIN ATTENDANT by Alida Lambert M.D. [email or web address]
[2019-06-14 03:47] VITALS: BP 107/51; PULSE 60; RESP 19; TEMP 36.6; O2SAT 97
--- NOTE | 2019-06-14 05:37 | PC.NURSE ---
PT CONVERTED FROM AFIB TO SINUS RHYTHM. PT STATES THAT THEY FEEL BETTER. WILL CONTINUE TO MONITOR.
[2019-06-14] MEDS: FUROsemide 20 mg Tablet 10 MG PO (06:33)
[2019-06-14 06:34] VITALS: BP 105/60; PULSE 65; RESP 14; TEMP 36.7; O2SAT 96
--- NOTE | 2019-06-14 08:15 | PM.PN ---
Subjective Subjective: Interval history: Patient converted into sinus rhythm this morning. Heart rate is in the lower 60s. Vitals/I&O/Wt Last Vital Signs Temp 98.0 F 06/14/19 06:34 Pulse 65 06/14/19 06:34 Resp 14 06/14/19 06:34 BP 105/60 06/14/19 06:34 Pulse Ox 96 06/14/19 06:34 06/13/19 06/14/19 06/14/19 22:59 06:59 14:59 Intake Total 240 / 480 350 / 830 Balance 240 / 480 350 / 830 Physical Exam Narrative: EXAM NARRATIVE: GENERAL: Patient is alert, awake and oriented x3. NECK: No jugular vein distension. HEENT: No cyanosis. No icterus. No pallor. HEART: Regular S1 and S2. No murmur, rub or gallop. LUNGS: Clear to auscultate bilaterally. ABDOMEN: Soft, nontender and nondistended. Positive bowel sounds. No guarding, rebound or tenderness. CENTRAL NERVOUS SYSTEM: Grossly nonfocal. EXTREMITIES: Lower extremities without edema bilaterally. Varicose veins Data : 06/12/19 07:35 06/12/19 07:35 Micro: Microbiology 06/11/19 12:07 Urine Culture - Final Urine,Clean Catch A&P Assessment and plan (1) Atrial fibrillation with rapid ventricular response: Patient was given extra dose of metoprolol last night she converted into sinus rhythm this morning, however heart rate is in low 60s. I will reduce metoprolol back to 50 twice a day. We will continue anticoagulation.Patient has been advised to keep log of blood pressure pulse twice a day. Patient has been advised if she noticed heart rate constantly Slower than 50 she can call my office, Patient can follow up with Frances Tesfaye Cardiology nurse practitioner in one week Witht EKG. She will be following up with Dr. Cotton in his office as directed by him. Status: Acute Code(s): I48.91 - Unspecified atrial fibrillation (2) HTN (hypertension): Borderline low. Metoprolol will be reduced to 50mg bid Status: Acute Qualifiers: Hypertension type: essential hypertension Qualified Code(s): I10 - Essential (primary) hypertension Code(s): I10 - Essential (primary) hypertension (3) Hyperlipidemia: Patient is not on statin due to Intolerance. Status: Acute Qualifiers: Hyperlipidemia type: mixed hyperlipidemia Qualified Code(s): E78.2 - Mixed hyperlipidemia Code(s): E78.5 - Hyperlipidemia, unspecified (4) CHF (congestive heart failure): Continue po lasix Status: Acute Qualifiers: Heart failure type: combined systolic and diastolic Heart failure chronicity: acute Qualified Code(s): I50.41 - Acute combined systolic (congestive) and diastolic (congestive) heart failure Code(s): I50.9 - Heart failure, unspecified (5) Varicose veins of bilateral lower extremities with pain: Status post venous ablation/sclerotherapy. Status: Acute Code(s): I83.813 - Varicose veins of bilateral lower extremities with pain Additional A&P Information Based on the clinical response to the above medication changes, further recommendations will be made. Thank you for the opportunity to evaluate this patient and make these recommendations Attestations Medical Necessity Statement*: Patient can be discharged home from a cardiac perspective if cleared by her primary care physician. 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
--- NOTE | 2019-06-14 08:39 | P.DS_ITS ---
Discharge Providers Date of Admission: 06/11/19 14:21 Date of Discharge: 06/16/19 Attending Provider at Admission: Ca Walsh MD Attending Provider at Discharge: Gurwinder Cotton MD Primary Care Provider: uGrwinder Cotton MD Diagnoses at Discharge Discharge Diagnosis (1) Atrial fibrillation with rapid ventricular response: Status: Acute Problem details: This has not improved significantly with current treatment. Continue with medications per cardiology. (2) HTN (hypertension): Status: Acute Qualifiers: Hypertension type: essential hypertension Qualified Code(s): I10 - Essential (primary) hypertension (3) Hyperlipidemia: Status: Acute Qualifiers: Hyperlipidemia type: mixed hyperlipidemia Qualified Code(s): E78.2 - Mixed hyperlipidemia (4) CHF (congestive heart failure): Status: Resolved Qualifiers: Heart failure chronicity: acute Heart failure type: combined systolic and diastolic Qualified Code(s): I50.41 - Acute combined systolic (congestive) and diastolic (congestive) heart failure (5) Varicose veins of bilateral lower extremities with pain: Status: Acute Reason for Visit Reason for Visit: Reason For Visit: Heart is racing Hospital Course Hospital Course: Karime Cisse is an 83 year old female with PMH uncontrolled atrial fibrillation, diastolic CHF, hypertension who was recently seen as an outpatient by cardiology on May for c/o palpitations and subjective shortness of breath. At the time she appeared to be in A. fib with fast ventricular response @ 116 bpm. EKG was also performed today which showed A. fib with rapid ventricular response. She c/o subjective SOB and chest discomfort during times of increased HR. She feels most comfortbale when HR is up to 90bpm. She denies PND orthopnea presyncope or syncope. She is on anticoagulation with Xarelto. On last visit her dose of flecainide was increased to three times a day, and through the week, she reports this has been increased to 5 times a day as instructed by the office over the phone. Denies any current chest pain, dyspnea. Discharge Summary: During the patient's hospitalization, her flecainide dose was adjusted as well as her metoprolol. Her heart rate has decreased well and she is feeling much better without significant shortness of breath or chest pains. Overall the patient is doing better and is to follow-up with cardiology next week to be sure that her heart rate is staying in sinus rhythm. She will follow-up with me in the next 1 to 2 weeks as well. Physical Exam Narrative: EXAM NARRATIVE: General: Alert and oriented x3 Cardiac: Regular rate and rhythm without murmur Lungs: Clear to auscultation bilaterally without wheezes, crackles or rhonchi Abdomen: Soft, nontender without hepatosplenomegaly Extremities: Trace edema in the bilateral lower extremities Discharge Data Data Completed and Pending: Completed Studies During Hospitalization Category Date Time Status XR chest 1V tim ble 23060 Stat Exams 06/11/19 10:38 Completed Vitals: Last Vital Signs Temp 98.0 F 06/14/19 06:34 Pulse 65 06/14/19 06:34 Resp 14 06/14/19 06:34 BP 105/60 06/14/19 06:34 Pulse Ox 96 06/14/19 06:34 Discharge Plan Discharge Patient Disposition: Home, Self-Care Condition: Good Prescriptions: New flecainide 100 mg Tablet 150 mg PO Q12H Qty: 90 RF: 0 metoprolol tartrate 50 mg Tablet 50 mg PO BID Qty: 60 RF: 0 Continued Xarelto 20 mg tablet 20 mg PO DAILY RF: 0 levothyroxine 25 mcg capsule 25 mcg PO DAILY RF: 0 spironolactone 25 mg tablet 25 mg PO DAILY RF: 0 furosemide [Lasix] 20 mg tablet 10 mg PO QAM RF: 0 potassium chloride [Klor-Con 10] 10 mEq tablet extended release 10 meq PO DAILY RF: 0 Discontinued carvedilol 12.5 mg tablet 12.5 mg PO BID RF: 0 flecainide 50 mg tablet 50 mg PO Q12H RF: 0 Discharge Orders: Discharge Order (Routine); Ordered 06/14/19 Ordered By: Gurwinder Cotton Referrals: Park Mosquera MD [Physician] - 1 week (You have an follow-up appointment with Frances Tesfaye at [facility] on June 20 at 10:30a.m. If, you any questions or need to reschedule. Please, call ) Gurwinder Cotton MD [Primary Care Provider] - 2 weeks (You have an follow-up appoinment with on June 28 at 10:30a.m. If, you have any questions or need to reschedule. 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
[2019-06-14] MEDS: rivaroxaban 10 mg Tablet 20 MG PO (09:40)
[2019-06-14] MEDS: levothyroxine 25 mcg Tablet PO (09:40)
[2019-06-14] MEDS: metoprolol tartrate 50 mg Tablet PO (09:41)
[2019-06-14 10:10] VITALS: BP 105/60; PULSE 65; RESP 14; TEMP 36.7; O2SAT 96
[2019-06-14 10:21] VITALS: BP 105/60; PULSE 65; RESP 14; TEMP 36.7; O2SAT 96
== END 2019-06-14 12:45 | disposition home or self-care (01) | DRG 308 ==
LOC: ER 14:17 → CSU 14:33
PROVIDERS: Admitting Provider Student in an Organized Health Care Education/Training Program; Emergency Provider Family Medicine; Family Provider Family Medicine; PCP Family Medicine; Visit Provider Family Medicine
DX: I48.19 Other persistent atrial fibrillation (principal); I50.41 Acute combined systolic (congestive) and diastolic (congestive) heart failure; I11.0 Hypertensive heart disease with heart failure; E78.2 Mixed hyperlipidemia; I83.813 Varicose veins of bilateral lower extremities with pain; Z79.01 Long term (current) use of anticoagulants; Z87.891 Personal history of nicotine dependence
CPT/HCPCS: 12345; 36415; 71045; 80053; 81003; 83880; 84484; 85025; 87086; 93005; 99283; J3490

== ENCOUNTER 2019-09-21 13:01 | Emergency (ER) | payer MEDICARE, SELFPAY ==
[2019-09-21 13:45] VITALS: BP 156/94; PULSE 76; RESP 18; TEMP 36.8; O2SAT 99; BMI 32.3
--- NOTE | 2019-09-21 13:48 | ED_ITS ---
HPI - Extremity Injury (Upper) General: Chief Complaint: Extremity Injury, Upper Stated Complaint: fall,arm pain Time Seen by Provider: 09/21/19 13:47 Source: patient Mode of arrival: ambulatory Limitations: no limitations History of Present Illness: HPI narrative: Patient comes in for injury that occurred to her left wrist this morning. Patient reports tripping and catching herself with outstretched left arm. Patient had significant pain at the beginning but at this time seems to be tolerating the pain very well. Patient states she has been using ice on it but still has significant swelling. Patient is alert and oriented and responds appropriate to questions. Patient does have a history of atrial fib, peripheral artery disease, and hypertension with hyperlipidemia. Review of Systems General: Reports: 10 or more systems reviewed and unremarkable except in HPI and below Musc: Reports: extremity pain and extremity swelling [facility] ED PFSH: Social History Smoking and tobacco status: never smoked Alcohol intake: current Physical Exam Const: COMMON NORMALS: no apparent distress and oriented x3 GENERAL APPEARANCE: cooperative HENMT: COMMON NORMALS: normocephalic, TM's normal bilaterally and external nose normal HEAD & SCALP: normal to inspection and normocephalic NOSE: external nose normal TYMPANIC MEMBRANE: TM's normal bilaterally MOUTH: oral and palatal mucosa normal THROAT: posterior oropharynx normal Eye: GENERAL EYE: normal appearance of both eyes Neck/C-Spine: COMMON NORMALS: full ROM Lymph: LYMPHATIC: no lymphadenopathy noted Chest: COMMONS NORMALS: inspection of chest normal Resp: COMMON NORMALS: normal respiratory effort EFFORT & INSPECTION: Yes able to speak in complete sentences Cardio: COMMON NORMALS: regular rate and regular rhythm RATE: regular rate RHYTHM: regular rhythm GI: COMMON NORMALS: non-tender : COMMON NORMALS: Yes no CVA tenderness BLADDER/KIDNEY EXAM: Yes no CVA tenderness Back/Pelvis: COMMON NORMALS: no CVA tenderness and thoracic and lumbar spine normal to inspection Extremity: NARRATIVE EXTREMITY EXAM: Left distal forearm no swelling and obvious deformity of the wrist area. Pulses are intact. Distal cap refill is normal. Tendon function is normal. Patient has reduced range of motion of the wrist due to pain and swelling. Neuro: COMMON NORMALS: oriented x3 and moves all extremities Psych: COMMON NORMALS: mental status grossly normal and cooperative Skin: COMMON NORMALS: no rashes or lesions noted GENERAL SKIN EXAM: no rashes or lesions noted Course Vital Signs: Vital signs: Vital Signs Temperature 98.2 F 09/21/19 13:45 Pulse Rate 76 09/21/19 13:45 Respiratory Rate 18 09/21/19 13:45 Blood Pressure 156/94 09/21/19 13:45 Pulse Oximetry 99 09/21/19 13:45 MDM - Extremity Injury (Upper) MDM Narrative: Medical decision making narrative: Patient comes in today for complaints of injury to the left wrist. On exam we note some deformity to the left wrist area. X-ray noted a fracture of the distal radius with some mild displacement. Patient also had a fracture of the ulnar styloid. Patient had a sugar tong splint put in place and reported better pain control with the splinting. Nursing did splinting. Cap refill and pulses and sensation remains intact to the distal extremity after splinting. Patient was given medication for pain and sling for support. Case management will contact patient for follow-up appointment with orthopedics. Discharge Plan Discharge Patient Disposition: Home, Self-Care Clinical Impression: Fracture of wrist Qualifiers: Encounter type: initial encounter Fracture type: closed Laterality: left Qualified Code(s): S62.102A - Fracture of unspecified carpal bone, left wrist, initial encounter for closed fracture Condition: Stable Prescriptions: New hydrocodone-acetaminophen 5-325 mg tablet 1 tab PO Q6H PRN (Reason: pain (scale score 7-10)) Qty: 10 RF: 0 No Action Xarelto 20 mg tablet 20 mg PO DAILY RF: 0 spironolactone 25 mg tablet 25 mg PO DAILY RF: 0 furosemide [Lasix] 20 mg tablet 10 mg PO QAM RF: 0 potassium chloride [Klor-Con 10] 10 mEq tablet extended release 10 meq PO DAILY RF: 0 levothyroxine 25 mcg capsule 50 mcg PO DAILY RF: 0 flecainide 100 mg tablet 150 mg PO Q12H Qty: 90 RF: 1 metoprolol tartrate 50 mg Tablet 50 mg PO BID Qty: 60 RF: 0 Discharge Orders: Discharge Order (Routine); Ordered 09/21/19 Ordered By: Nik aRnd Referrals: Gurwinder Cotton MD [Primary Care Provider] - Discharge Diet: Usual diet Discharge Activity: Increase activity as tolerated Patient Instructions: Wrist Fracture in Adults (ED) Activity Restrictions/Additional Instructions: Keep splint clean and dry. Use sling for comfort and support. Use acetaminophen and ibuprofen as needed for pain. Use hydrocodone as needed for uncontrolled pain. Follow-up with orthopedist for further treatment. Return to the ER for worsening pain or new concerns. Case management will contact you to assist with follow-up appointment for orthopedist. Coding Level of Care Code ED Insurance Administrative Assistant for Hermelinda Sanchez Exam Comprehensive
--- NOTE | 2019-09-21 13:49 | XR_ITS ---
WS: [id number] LEFT WRIST: 3 VIEW(S) TECHNIQUE: PA, oblique and lateral. HISTORY: injury COMPARISON: None available. Acute radial metaphyseal fracture. Dorsal displacement with overlapping of the fracture fragments. No definite extension to the articular surface. Nondisplaced avulsion fracture at the base of the ulnar styloid. Osteopenia. Large amount of soft tissue edema surrounding the wrist and peripheral arterial calcifications. XR/XR wrist LT min 3V* [id number] IMPRESSION: 1. Comminuted radial fracture with posterior displacement and overlapping. 2. Nondisplaced avulsion fracture ulnar styloid.
[2019-09-21] MEDS: HYDROcodone-acetaminophen 5-325 mg Tablet 1 TAB PO (14:22)
--- NOTE | 2019-09-22 09:56 | DCPLANNER ---
medical reimbursement manager had message to schedule a follow up appointment for patient with ortho. medical reimbursement manager called the ortho clinic, spoke with Pat, senior case manager gave clinic patients information. medical reimbursement manager was told that patients information would be printed and reviewed. Clinic will call senior case manager and patient with appointment information.
--- NOTE | 2019-09-28 13:41 | DCPLANNER ---
Patient had a follow up appointment scheduled for 09.26.19 with ortho. Patient did attend the appointment.
== END 2019-09-21 15:35 | disposition home or self-care (01) ==
PROVIDERS: Emergency Provider Nurse Practitioner Family; Family Provider Family Medicine; PCP Family Medicine
DX: S52.92XA Unspecified fracture of left forearm, initial encounter for closed fracture (principal); S52.615A Nondisplaced fracture of left ulna styloid process, initial encounter for closed fracture; W01.0XXA Fall on same level from slipping, tripping and stumbling without subsequent striking against object, initial encounter
CPT/HCPCS: 12345; 29515; 73110; 99282; 99283; A4590

== ENCOUNTER 2019-09-24 09:25 | Emergency (ER) | payer MEDICARE, SELFPAY ==
[2019-09-24 09:33] VITALS: BP 150/83; PULSE 102; RESP 18; TEMP 36.7; O2SAT 96; BMI 30.8
--- NOTE | 2019-09-24 09:40 | XRR_ITS ---
PROCEDURE INFORMATION: Exam: XR Left Forearm Exam date and time: 09/24/2019 9:41 AM Age: 84 years old Clinical indication: Other: Removed splint; Additional info: Recent FX TECHNIQUE: Imaging protocol: XR Left forearm. Views: 2 views. COMPARISON: No relevant prior studies available. FINDINGS: Bones/joints: Impacted distal radial metaphyseal mildly comminuted fracture, with approximately 3.7 mm of lateral displacement of the distal segment, and mild dorsal inclination of the distal articular surface. Ulnar styloid process avulsion and medial displacement. The radiocarpal, intercarpal and carpometacarpal alignment is unremarkable. Soft tissues: Extensive forearm soft tissue swelling. XR/XR forearm LT 2V [id number] IMPRESSION: 1. Impacted distal radial metaphyseal mildly comminuted fracture. 2. Ulnar styloid process avulsion with medial displacement.
--- NOTE | 2019-09-24 09:40 | USR_ITS ---
PROCEDURE INFORMATION: Exam: US Duplex Left Upper Extremity Veins, Limited Exam date and time: 09/24/2019 9:41 AM Age: 84 years old Clinical indication: Pain; Arm, lower; Left; Additional info: Swelling TECHNIQUE: Imaging protocol: Real-time Duplex ultrasound of the Left Upper Extremity with 2-D quiñonez scale, color Doppler flow and spectral waveform analysis with image documentation. Limited exam focused on the left upper extremity veins. COMPARISON: No relevant prior studies available. FINDINGS: Left deep veins: Unremarkable. Axillary and brachial veins are patent throughout without thrombus. Normal Doppler waveforms. Normal compressibility and/or augmentation response. Visualized internal jugular and subclavian veins are patent. Left superficial veins: Unremarkable. Visualized cephalic and basilic veins are patent without thrombus. Soft tissues: Unremarkable. US/[place] [id number] IMPRESSION: No acute findings. No evidence of deep vein thrombosis.
--- NOTE | 2019-09-24 09:41 | ED_ITS ---
HPI - Extremity Problem General: Chief complaint: Extremity Injury, Upper Stated complaint: LEFT ARM SWELLING/FEVERISH Time Seen by Provider: 09/24/19 09:29 History of Present Illness: HPI Narrative: Patient was seen here 3 days ago for a fractured forearm. A sugar tong splint was placed. Patient said her arm was itching and burning so she removed the Harinder wrap cast padding and sugar tong so she could scratch her arm. Her then reapplied the splint. Patient complains of swelling and edema to her hand and upper extremity. MD Complaint: extremity pain and extremity swelling Pain Consistency: constant Location: left and upper extremity Quality: burning Radiation: none Relieving factors: nothing Exacerbating factors: nothing Review of Systems General: Reports: 10 or more systems reviewed and unremarkable except in HPI and below PFSH ED PFSH: Medical History CHF (congestive heart failure) last echocardiogram 12/2016, LVEF 65%, no valvular abnormality. HTN (hypertension) Hyperlipidemia Varicose veins of bilateral lower extremities with pain Surgical History H/O knee surgery Hx of cholecystectomy Status post ablation of incompetent vein using laser Family History Father CAD (coronary artery disease) Having heart follow-up in his 60s. Family/Other CAD (coronary artery disease) Dad's brother had a heart attack in his 30s Son Atrial fibrillation, Onset Age: 35 Other Cancer Family history of premature coronary artery disease Hypertension Social History Smoking and tobacco status: former smoker Alcohol intake: current Physical Exam Extremity: NARRATIVE EXTREMITY EXAM: Moderate dependent edema to the left hand Course Vital Signs: Vital signs: Vital Signs Temperature 98.0 F 09/24/19 09:33 Pulse Rate 102 H 09/24/19 09:33 Respiratory Rate 18 09/24/19 09:33 Blood Pressure 150/83 09/24/19 09:33 Pulse Oximetry 96 09/24/19 09:33 MDM - Extremity (Nontraumatic) Imaging Data^: Other Xray: My impression: No change in the alignment of fracture fragments. Discharge Plan Discharge Patient Disposition: Home, Self-Care Clinical Impression: Fracture of wrist Qualifiers: Encounter type: subsequent encounter Fracture type: closed Laterality: left Fracture healing: with routine healing Qualified Code(s): S62.102D - Fracture of unspecified carpal bone, left wrist, subsequent encounter for fracture with routine healing Condition: Stable Prescriptions: New Vistaril 25 mg capsule 25 mg PO Q6H PRN (Reason: itching) Qty: 20 RF: 0 No Action Xarelto 20 mg tablet 20 mg PO DAILY RF: 0 spironolactone 25 mg tablet 25 mg PO DAILY RF: 0 furosemide [Lasix] 20 mg tablet 10 mg PO QAM RF: 0 potassium chloride [Klor-Con 10] 10 mEq tablet extended release 10 meq PO DAILY RF: 0 levothyroxine 25 mcg capsule 50 mcg PO DAILY RF: 0 flecainide 100 mg tablet 150 mg PO Q12H Qty: 90 RF: 1 metoprolol tartrate 50 mg Tablet 50 mg PO BID Qty: 60 RF: 0 hydrocodone-acetaminophen 5-325 mg tablet 1 tab PO Q6H PRN (Reason: pain (scale score 7-10)) Qty: 10 RF: 0 Discharge Orders: Discharge Order (Routine); Ordered 09/24/19 Ordered By: Paul Keenan Referrals: Gurwinder Cotton MD [Primary Care Provider] - Coding Level of Care Code ED Washing Machine Striper for Hermelinda Sanchez
--- NOTE | 2019-09-24 09:51 | PC.NURSE ---
Splint removed from left arm.
[2019-09-24 10:59] VITALS: BP 145/84; PULSE 100; RESP 18; O2SAT 98
--- NOTE | 2019-09-24 11:00 | PC.NURSE ---
Posterior long sugar tong splint placed per VO by Dr Keenan. Pt tolerated well. Fingers pink warm and dry post-splinting. Pt placed back in sling with instructions not to remove splint and to keep appointment with Dr Navarro.
== END 2019-09-24 11:01 | disposition home or self-care (01) ==
PROVIDERS: Emergency Provider Family Medicine; Family Provider Family Medicine; PCP Family Medicine
DX: S59.292A Other physeal fracture of lower end of radius, left arm, initial encounter for closed fracture (principal); S52.612A Displaced fracture of left ulna styloid process, initial encounter for closed fracture; X58.XXXA Exposure to other specified factors, initial encounter; I11.0 Hypertensive heart disease with heart failure; I50.9 Heart failure, unspecified; E78.5 Hyperlipidemia, unspecified; Z87.891 Personal history of nicotine dependence
CPT/HCPCS: 12345; 29105; 73090; 93971; 99281; 99283

== ENCOUNTER 2019-09-25 09:04 | Outpatient (CLI) | payer MEDICARE, SELFPAY ==
--- NOTE | 2019-09-25 09:30 | USCV_ITS ---
Karime Cisse Age: 84 Gender: F : 1935 Exam Date: 09/25/2019 09:20 Ordering Phys: Frances Tesfaye Technologist: Fernando Jang [place]am Location[place] [facility] [place]: HISTORY: VARICOSE VEINS PROCEDURES: Bilateral duplex Venous Insufficiency study of the Deep and Superficial systems was carried out according to normal protocol with the patient in supine positon for deep system and dependent position for the superficial system. FINDINGS: All deep veins demonstrated compressibility without evidence of intraluminal thrombus or increased echogenicity. Spectral analysis of Doppler signals demonstrates normal response to compression maneuvers indicating patency without obstruction. Reflux determinations were made with the patient in the dependent position, the weight being on the contralateral leg. MULTPLE LEVELS OF QUALIFYING SAPH REFLUX ON BOTH LEGS. RT AND LT SAPH VEINS ARE SMALL AND TORCHOUS PREFORMING DR SHOULD CONSULT FILMS BEFORE SCHELDULEING ABLATION ATTEMPT CONCLUSIONS No evidence of DVT in the above-mentioned identifiable veins. Significant venous reflux of greater than 500 ms were noted in the proximal, mid, distal and below-knee greater saphenous vein segments bilaterally. The veins are relatively of small caliber, more so on the left side. These veins are also found to be tortuous. The right distal greater saphenous and below-knee greater saphenous vein segments were less than 1 cm deep from the surface. The venous dimensions, depth from the surface, reflux times are as mentioned above Dr Alida Lambert MD [facility] (Electronically Signed) Final Date: 25 Sep 2019 17:50 S
== END 2019-09-25 09:05 | disposition home or self-care (01) ==
LOC: RAD 09:08
PROVIDERS: Family Provider Family Medicine; PCP Family Medicine; Visit Provider Nurse Practitioner Family
DX: I83.813 Varicose veins of bilateral lower extremities with pain (principal)
CPT/HCPCS: 93970

== ENCOUNTER 2019-09-27 10:59 | Day surgery (SDC) | payer MEDICARE, SELFPAY ==
[2019-09-26 13:28] VITALS: BMI 30.8
[2019-09-27] VITALS (9 sets, daily range): BP systolic 172–186; BP diastolic 77–92; PULSE 52–59; RESP 16–19; TEMP 36.1–36.6; O2SAT 94–100
--- NOTE | 2019-09-27 | XR_ITS ---
WS: [id number] XR wrist LT 2V [id number] REASON FOR EXAM: OR PICS FINDINGS: A remote fracture of the styloid process the ulna and an impacted fracture of the radius wi th a plate in place are seen the alignment is satisfactory for healing. XR/XR wrist LT 2V [id number] IMPRESSION: Fractures of the ulna and radius good alignment the radius is seen stabilized w ith a metal plate.
--- NOTE | 2019-09-27 | SCC_ITS ---
Procedure Done: Open reduction internal fixation extra-articular fracture left distal radius 39.5 seconds of fluoroscopic guidance, for a cumulative dose of 0.90 mGy, was provided to Dr. Navarro by the radiology department. C-arm images of the LEFT wrist were saved for the patient's permanent record. [facility]
--- NOTE | 2019-09-27 11:56 | ANES.PREANE2 ---
Pre-Anesthetic Assessment Pre-Anesthetic Assessment: Height/Weight: Height 1.78 m Weight 97.522 kg Temp Pulse Resp BP Pulse Ox 97.3 F L 52 L 18 183/78 98 09/27/19 11:35 09/27/19 11:35 09/27/19 11:35 09/27/19 11:35 09/27/19 11:35 Preop Diagnosis: Left distal radius fracture Proposed Procedure: Operation Date: 09/27/19 12:25 Proposed Procedures p Open reduction internal fixation left distal radius (82590)/S52.532A(Left) - Daniel Navarro MD Familial anesthetic complications: None Was Beta Alysha taken within 24 hours: N/A Last intake: Intake eliquis night before last Last Liquid Date 09/26/19 Last Liquid Time 18:00 Last Solid Date 09/26/19 Last Solid Time 18:00 Social: Social History: No alcohol and No tobacco Exam: Pre-Anes Outpt Exam: alert, oriented x 3, clear to auscultation bilaterally and regular rate & rhythm Airway: Cervical ROM: WNL MP: 2 Additional comments: dentures Pulmonary: Pulmonary: None reported CV/HEM: CV/HEM: Afib, CHF and HTN : : None reported Hepatic: Hepatic: None reported GI: GI: None reported Metabolic: Metabolic: Thyroid Musc/skel: Musc/skel: None reported Neuropsych: Neuropsych: None reported Anesthetic Plan: ASA status: 3 Anesthesia: General and Regional (specify below) Risk of > 500 ml blood loss (7ml/kg in children): No PFSH Anesthesia PFSH: Social History Smoking and tobacco status: former smoker Alcohol intake: current Data Anesthesia Cardiac Studies: No Data to Display
[2019-09-27] MEDS: fentaNYL 50 mcg/mL INJ 2mL IVP (12:13)
--- NOTE | 2019-09-27 12:21 | ANES.PROC ---
Anesthesia Procedures Procedure/Date: 09/27/19 Nerve Block ^: Nerve Block 1: Main Anesthesia: general anesthesia Time Out Performed: Yes Consent: requested by attending/covering physician, from patient, risks and benefits reviewed and patient agrees to proceed Nerve block location: supraclavicular (L) Anesthesia monitors applied: pulse oximetry, BP cuff and oxygen Nerve block position: semi sitting Anesthetic Used: ropivicaine 0.5% and with decadron (4 mg) Amount of anesthesia used (mL): 30 Ultrasound used to: recognize landmarks Nerve Stimulator Used?: No Interscalene/Femoral BLK: 4 stimuplex 21 g needle used for position and inplane approach Injection: neg aspiration of heme Patient Tolerated Procedure: well Complications: none
[2019-09-27] MEDS: sodium chloride 0.9% 1,000 ML 30 ML IV (12:36)
--- NOTE | 2019-09-27 13:11 | W.PM.OPSUD ---
Surgery/Procedure H&P Update DATE OF PROCEDURE: September 27, 2019 DATE H&P PERFORMED: 09/26/19 PREOP DIAGNOSIS: Left distal radius fracture PLANNED PROCEDURE: Operation Date: 09/27/19 12:25 Proposed Procedures p Open reduction internal fixation left distal radius (29648)/S52.532A(Left) - Daniel Navarro MD
--- NOTE | 2019-09-27 14:46 | PM.OP ---
Operative Report Date of procedure: September 27, 2019 Pre-op Diagnosis: Left distal radius fracture Post-op diagnosis: same Post-op Findings: Same, extra-articular fracture left distal radial Procedure Done: Open reduction internal fixation extra-articular fracture left distal radius Implants: Firebaugh Variax short narrow left volar wrist plate Pathology: none sent Anesthesia: General Estimated blood loss (mL): 20 Tourniquet time (min): 25 Complications: None Findings: The patient had a unstable extra-articular fracture of the left distal radius with dorsal and proximal displacement of the distal fragment Brief History: The patient fell with resulting displaced fracture of the left distal radius. Due to the degree of displacement and shortening surgical stabilization was chosen to improve alignment and ultimately function. When given options of closed reduction and pinning versus open reduction internal fixation the patient felt she could not tolerate further casting and wished to proceed with open reduction internal fixation Procedure: Initial attempts were made at closed reduction however a satisfactory stable reduction could not be obtained. A decision was made to proceed with open reduction internal fixation.A 5 cm long incision was made along over the flexor carpi radialis tendon. Dissection was carried down through the tendon sheath. Dissection was carried down bluntly to the pronator quadratus. The pronator quadratus was elevated off of the distal radius leaving a cuff for later repair. Closed reduction was accomplished of the distal radius. A Firebaugh Variax left short narrow plate was applied. It was fixed distally with 1 nonlocking compressing the plate to the bone and 4 locking screws and proximally with 1 locking and 3 nonlocking bicortical screws. Intraoperative imaging showed excellent position of the hardware. The wound was irrigated with saline. The pronator quadratus was reapproximated with 2-0 Vicryl. Subcutaneous tissues were closed with 2-0 Vicryl. The skin was closed with skin smitha. Sterile dressings were applied. The patient was taken to outpatient surgery in stable condition.
--- NOTE | 2019-09-27 15:02 | SUR.PHASEI ---
PT AWAKE ALERT ON RA NOW PT VERBALZIED NO PAIN OR NAUSEA LT HAND WITH DRESSING AND SPLINT D/I DISTAL FINGERS PINK WITH CAP REFILL LESS THAN 3 SECONDS . PT STATES NO FEELING TO LT FINGERS AND PT UNABLE TO MOVE FINGERS.
--- NOTE | 2019-09-27 15:27 | SUR.PHASEI ---
1515 PT ALERT TALKATIVE WITH OPS NURSE IN OPS,PT REQUESTS SPRITE TO SIP ON , PT HEARING AID PLACED TO RT EAR AND UPPER AND LOWER DENTURES IN PLACE PER PT.
--- NOTE | 2019-09-27 16:48 | PC.NURSE ---
DISCHARGE INSTRUCTIONS GIVEN TO PT, WRITTEN AND VERBAL TO PT AND THEN TO HER OVER THE PHONE AND IN PERSON. REPORT THEN CALLED TO HER DAUGHTER ,JILL GODINEZ ,WITH THE PT'S PERMISSION. PT STATED THAT THE WAS NOT VERY HELPFUL TO HER SO I INFORMED DAUGHTER OF ALL INSTRUCTIONS.
== END 2019-09-27 16:39 | disposition home or self-care (01) ==
PROVIDERS: Family Provider Family Medicine; PCP Family Medicine; Visit Provider Orthopaedic Surgery
PROC: (CPT 25607; principal; 2019-09-27 12:25)
DX: S52.552A Other extraarticular fracture of lower end of left radius, initial encounter for closed fracture (principal); W19.XXXA Unspecified fall, initial encounter; I11.0 Hypertensive heart disease with heart failure; I50.9 Heart failure, unspecified; Z87.891 Personal history of nicotine dependence; E78.5 Hyperlipidemia, unspecified; Z82.49 Family history of ischemic heart disease and other diseases of the circulatory system
CPT/HCPCS: 25607; 12345; 73100; 76000; 96374; C1713; J0330; J0690; J1100; J1580; J2001; J2405; J2704; J2795; J3010; J3490; J7030

== ENCOUNTER → 2019-11-09 13:55 | Outpatient (BNVA) | payer MEDICARE, SELFPAY | PROVIDERS: Family Provider Family Medicine; PCP Family Medicine; Visit Provider Orthopaedic Surgery | DX: S52.532D Colles' fracture of left radius, subsequent encounter for closed fracture with routine healing (principal); S52.612K Displaced fracture of left ulna styloid process, subsequent encounter for closed fracture with nonunion; W01.0XXD Fall on same level from slipping, tripping and stumbling without subsequent striking against object, subsequent encounter; Z98.890 Other specified postprocedural states | CPT/HCPCS: 73110 ==

== ENCOUNTER → 2020-02-27 08:49 | Outpatient (BNVA) | payer MEDICARE, SELFPAY | PROVIDERS: Family Provider Family Medicine; PCP Family Medicine; Visit Provider Family Medicine | DX: Z11.59 Encounter for screening for other viral diseases (principal) | CPT/HCPCS: 87635 ==

== ENCOUNTER → 2020-12-04 15:24 | Outpatient (BNVA) | payer MEDICARE, SELFPAY | PROVIDERS: Family Provider Family Medicine; PCP Family Medicine; Visit Provider Internal Medicine Cardiovascular Disease | DX: I10 Essential (primary) hypertension (principal); I48.91 Unspecified atrial fibrillation; R55 Syncope and collapse; I49.5 Sick sinus syndrome | CPT/HCPCS: 80048; 85025 ==

== ENCOUNTER 2020-12-13 15:39 | Outpatient (CLI) | payer MEDICARE, SELFPAY ==
--- NOTE | 2020-12-13 15:52 | CT_ITS ---
WS: [id number] CT scan of the head, 12/13/2020 Clinical Data: I49.5 - Sick sinus syndrome Comparison: CT head, 02/27/2014. DLP: 925.[address] scans at [facility] use at least one of these dose optimization techniques: automat ed exposure control; mA and/or kV adjustment per patient size (includes targeted exams where dose is matched to clinical indication); or iterative reconstruction. Findings: The ventricular system is slightly dilated without shift. No recent infarct or hemorrhage is seen. Th ere are no abnormal intracerebral masses. The cerebellum and brainstem are not remarkable. The right posterior lateral subcutaneous tissue shows a scalp hematoma. Bony windows of the skull and skull base show no fractures or erosions. The mastoid air cells, technology risk intern al auditory canals, sella turcica, intraorbital contents, and paranasal sinuses are unremarkable. CT/CT head wo con* 79740 Impression: 1. Negative for intracranial abnormality or blood. 2. Right posterior lateral scalp hematoma.
== END 2020-12-13 15:40 | disposition home or self-care (01) ==
LOC: RADWPI 15:51
PROVIDERS: PCP Family Medicine; Visit Provider Internal Medicine Cardiovascular Disease
DX: I49.5 Sick sinus syndrome (principal); R55 Syncope and collapse; S00.03XA Contusion of scalp, initial encounter; X58.XXXA Exposure to other specified factors, initial encounter
CPT/HCPCS: 70450

== ENCOUNTER 2020-12-20 10:38 | Outpatient (CLI) | payer MEDICARE, SELFPAY ==
--- NOTE | 2020-12-20 11:08 | XR_ITS ---
WS: [id number] Exam: XR chest 2V* [id number] Date/Time of Exam: 12/20/2020 11:09 AM Reason For Exam: I49.5 - Sick sinus syndrome Comparison 06/11/2019. The lungs are clear and fully inflated. Normal cardiomediastinal structures. No pleural effusions. Kartik ny elements are intact. There may be pleural thickening along the upper lateral right pleural cavity. XR/XR chest 2V* [id number] IMPRESSION: 1. No acute cardiopulmonary finding.
== END 2020-12-20 10:39 | disposition home or self-care (01) ==
PROVIDERS: PCP Family Medicine; Visit Provider Internal Medicine Cardiovascular Disease
DX: I49.5 Sick sinus syndrome (principal)
CPT/HCPCS: 71046

== ENCOUNTER → 2020-12-27 08:48 | Outpatient (BNVA) | payer MEDICARE, SELFPAY | PROVIDERS: PCP Family Medicine; Visit Provider Internal Medicine Cardiovascular Disease | DX: Z01.812 Encounter for preprocedural laboratory examination (principal); Z20.822 Contact with and (suspected) exposure to COVID-19 | CPT/HCPCS: 80053; 85025; 85610; 86850; 86900; 87635 ==

== ENCOUNTER 2021-01-02 05:56 | Day surgery (SDC) | payer MEDICARE, SELFPAY ==
[2021-01-02] VITALS (20 sets, daily range): BP systolic 112–179; BP diastolic 50–90; PULSE 70–85; RESP 13–26; TEMP 36.3–36.7; O2SAT 92–99; BMI 31.0
[2021-01-02 06:51] LABS: INR 1.07 (0.8-1.2)
--- NOTE | 2021-01-02 07:10 | W.PM.OPSUD ---
Surgery/Procedure H&P Update DATE OF PROCEDURE: January 02, 2021 DATE H&P PERFORMED: 12/06/19 H&P UPDATE INFORMATION: I have reviewed H&P completed within last 30 days PREOP DIAGNOSIS: SSS PRIMARY INDICATION FOR PROCEDURE: Symptomatic bradycardia PLANNED PROCEDURE: Operation Date: 01/02/21 07:00 Proposed Procedures p Pacemaker Insertion 32259 I49.5(Not Applicable) - Alida Lambert MD PATIENT REASSESSED PRIOR TO SEDATION, WITH NO CHANGE NOTED: Yes PHYSICAL EXAM: alert, oriented x 3, clear to auscultation bilaterally and regular rate & rhythm AIRWAY EVAL/ANESTHESIA PLAN: normal airway, see other exam findings, ASA III, Monitored Anesthesia, Local Anesthesia, Risks, benefits & alternatives of sedation and/or procedure discussed and Patient agrees to continue as planned
--- NOTE | 2021-01-02 09:12 | XR_ITS ---
WS: [id number] Portable AP upright chest, 01/02/2021 Clinical Data: Post pacemaker Comparison: PA and lateral chest, 12/20/2020. Findings: No nodules, masses or effusions are seen. The heart is at the upper limits of normal. Permanent pacemaker is in good position with the wires in the heart and the generator overlying the l eft lateral chest. The aortic arch and descending aorta show minimal calcification and tortuosity. No pneumonia or pneumothorax is seen. XR/XR chest 1V 67914 Impression: 1. Satisfactory cardiac pacemaker position. 2. Minimal cardiomegaly and atherosclerosis.
--- NOTE | 2021-01-02 09:13 | P.OP_ITS ---
Operative Report Date of procedure: January 02, 2021 Pre-op Diagnosis: SSS Procedure: LOCATION: Cardiac catheterization lab/outpatient PREOPERATIVE DIAGNOSES: Symptomatic bradycardia/sick sinus syndrome/intermittent atrial fibrillation POSTOPERATIVE DIAGNOSES: Same. COMPLICATIONS: None. ESTIMATED BLOOD LOSS: Around less than 5 milliliters. BRIEF HISTORY: Ms. Murrell is a 85-year-old white female with a history of intermittent atrial fibrillation, was found to have features of a tachybradycardia arrhythmia on the event monitor. She has been having episodes of dizziness/syncope. For further management of her condition, a permanent pacemaker implantation was requested A normal-chamber permanent pacemaker implantation was recommended for AV synchrony and symptom management. The procedure was explained to the patient in detail with the risks and b enefits. The risks of bleeding, hematoma, vascular injury, infection, pneumothorax, myocardial perforation and other concomitant complications were explained in detail, which the patient understood well and consented to proceed. PROCEDURE DESCRIPTION: The patient was brought to the Cardiac Catheterization Lab. The left and the right side of the neck and the subclavian area were cleaned and draped in a sterile fashion. 1% Xylocaine was used as the local anesthetic agent. A left subclavian venous access was obtained using a micropuncture needle system. Under venographic guidance, the patient was injected with 20 milliliters of Omnipaque through the left antecubital vein. A two-inch long incision was made 2.0 centimeters below the midclavicular region. By sharp and blunt dissection, a pacemaker pocket was made. A second venous access was obtained using another micropuncture needle system. Over the first guidewire, a 7-Palestinian venous sheath with dilator was advanced. The venous dilator and the guidewire were taken out. A screw-in ventricular lead was advanced through the venous sheath and was positioned towards the right ventricle. Under fluoroscopy guidance, the ventricular lead was positioned toward the right ventricular apex. Good pacing and sensing thresholds were obtained. The lead was secured to the endocardium by advancing the helix. The stability of the lead was tested by gentle twisting movements and also by asking the patient to take some deep breaths and cough. The venous sheath was peeled off, at this time. The lead was secured to the pectoralis fascia, by suturing with 1-0 Surgilon. Over the second guidewire, another 7-Palestinian venous sheath with dilator was advanced. The dilator and the guidewire were taken out. Under fluoroscopy guidance, an atrial lead (Medtronic), was advanced and positioned toward the right atrium. The lead was positioned in the right atrial appendage. Good pacing and sensing thresholds were obtained. The lead was secured to the endocardium by advancing the helix. Stability of the lead was tested by gentle twisting movements and also by asking the patient to take some deep breaths and cough. The venous sheath was peeled off, at this time. The lead was secured to the pectoralis fascia by suturing with 0-Surgilon. The pacemaker pocket was copiously irrigated with vancomycin solution. Complete hemostasis was achieved. Sponge counts were confirmed. The leads were attached to a Medtronic generator. The generator was placed inside an antibiotic pouch- TYRX. The leads were positioned behind the generator and the generator was attached to the pectoralis fascia by suturing with 0-Surgilon. The pocket was closed in layers. Skin was approximated using 4-0 Vicryl. IMPLANTED DEVICES: ATRIAL LEAD: Model number: 5076/52 Serial number: [id number] Make: Medtronic VENTRICULAR LEAD: Model number: 5076/58 Serial number: [id number] Make: Medtronic GENERATOR Brand: Vega XT DR THIERRY Carrillo Model number: [id number] Serial number: [id number] Make: Medtronic IMPLANTATION DATA: With the pacing system analyzer, the R wave sensing was 7.1 millivolts with a lead impedance of 1063 and a pacing threshold was 1.0 volts at 0.5 milliseconds. In the atrium, the sensing was 2.5 millivolts with a lead impedance of 672 ohms and a pacing threshold was 1.5 volts at 1.0 milliseconds. Through the device, the R-wave sensing was 11.0 millivolts with a lead impedance of 969 and a pacing threshold was .75 volts at .4 milliseconds. The atrial sensing was 3.4 millivolts with a lead impedance of 494 ohms and a pacing threshold of 1.0 volts at 1.0 milliseconds. The pacemaker was set for AAIR/DDDR mode with upper rate of 60 and a lower rate of 130. TYRX REF [id number] #[id number] Make- Medtronic A pressure dressing was applied over the pacemaker site. The patient was transferred to the Medical Floor in stable condition. A chest x-ray was ordered to confirm the lead position and also to rule out any pneumothorax.
--- NOTE | 2021-01-02 10:00 | PC.NURSE ---
Shift Note 1000 AM- Received pt from earthmoving labourer post pacemaker insertion Pt is alert, oriented x4, pleasan. Denies any pain or discomfort. Noted Bulky dressing on left upper chest post pacemaker incision. No bleeding, hematoma, swelling. Shoulder Immobilizer attached to left arm. Instructed pt on activity restrictions to left arm such as no lifting above head and using left arm to reach things. Pt had taken her morning home meds prior to arrival to facility/procedure. VS taken. Will keep monitoring.
[2021-01-02] MEDS: dextrose 5%-sod chloride 0.45% 1,000 ML 75 ML IV (11:07)
--- NOTE | 2021-01-02 11:10 | PC.CHAP ---
Pastoral Care Encounter/Spiritual Assessment Type of Contact [] Declined green tire inspector visit [] Patient/Family/Request visit [] Outpatient visit [] Follow-up visit [] Physician referral [] Code/Alert [x] Routine visit [] Staff referral [] Actively dying [] Patient sleeping [] Family support [] [] Out of room [] Palliative care [] [x] Receiving care in room [] Pre-surgical visit [] Trauma [] Long length of stay [] ICU visit [] Other: Relational/Emotional Strength [x] Patient feels connected with others/family/visitors/staff [] Distress [] Loneliness/isolation [] Abandonment Spirituality of Patient [x] Person of Lorraine [] Attends Catholic of their Lorraine [x] Believes in Prayer [] Reads Bible or Pentecostalism materials [] There are Spiritual issues to be addressed Sample Patternmaker Interventions [x] Prayer [x] Active listening [x] Non-anxious presence [x] Spiritual/emotional support [] Crisis/trauma care [x] Spiritual counseling [] Bereavement support [] Provided bereavement packet [] Provided Bible/devotional materials [] Provided toy/stuffed animal, coloring book to patient or family member [] Provided Communion [] Anointing/[place] [] Salvation [x] Completed spiritual assessment [] Other: Impact on Illness or Injury [] Angry [] Fearful [] Anxious [] Often cries [] Exhaustion [] Unable to work [] Unable to attend temple [] Unable to walk/stand [] Unable to read [] Unable to drive [] Unable to eat/drink [] Unable to sleep [] Unable to be with family [] Patient intubated [] Other: Summary had stents proceeduer today feels good ahs a good attitude katiana be going home tomorrow if no complatons Time spent with patient 10 mins
[2021-01-02] MEDS: acetaminophen 500 mg Tablet 650 MG PO (19:38)
[2021-01-02] MEDS: flecainide 100 mg Tablet 50 MG PO (19:38)
--- NOTE | 2021-01-02 19:42 | PC.NURSE ---
Shift Note Frequent safety and comfort rounds continue. Orders and/or nursing care completed as indicated. Patient monitored for response to intervention and treatment(s). Education provided includes flecanide, tylenol and pacemaker check. Patient and/or entry level account representative verbalized complete understanding. Received report from LUPE Cuevas. Patient is s/p pacemaker placement. Patient has pressure dressing in place to left upper shoulder. Patient c/o feeling achy to the left shoulder. Administered Tylenol as ordered. Patient expressed thanks. Denies other needs or discomforts. No distress observed. Will continue to monitor.
--- NOTE | 2021-01-02 23:43 | PC.NURSE ---
Received instruction to stop fluid when completed per Dr Lambert
[2021-01-03 00:22] VITALS: BP 149/73; PULSE 74; RESP 16; O2SAT 94
[2021-01-03 03:12] VITALS: BP 160/85; PULSE 73; RESP 18; TEMP 36.9; O2SAT 94
[2021-01-03] MEDS: acetaminophen 500 mg Tablet 650 MG PO (03:12)
[2021-01-03 05:03] VITALS: PULSE 65
--- NOTE | 2021-01-03 06:00 | ECG_ITS ---
[facility] Test Date: 2021-01-03 Pat Name: Karime Cisse Department: Room: 102 Gender: Female Therapeutic Recreation Director: : 1935 Requested By: Alida Lambert Order Number: [id number] Reading MD: LISETH HUERTA Measurements Intervals [place] Rate: 71 P: 81 WY: 216 QRS: -4 QRSD: 113 T: 30 QT: 415 QTc: 453 Interpretive Statements SINUS RHYTHM WITH FIRST DEGREE AV BLOCK MODERATE INTRAVENTRICULAR CONDUCTION DELAY [110+ ms QRS DURATION] Compared to ECG 06/14/2019 03:35:15 Sinus bradycardia no longer present Indeterminate axis no longer present Electronically Signed On 01-03-2021 19:28:16 CDT by LISETH HUERTA [email or web address]
[2021-01-03] MEDS: FUROsemide 20 mg Tablet PO (06:09)
[2021-01-03 08:35] VITALS: BP 142/82; PULSE 88; RESP 19; TEMP 36.7; O2SAT 97
[2021-01-03] MEDS: atorvastatin 40 mg Tablet PO (08:36)
[2021-01-03] MEDS: potassium chloride ER 10 mEq Tablet PO (08:36)
[2021-01-03] MEDS: levothyroxine 75 mcg Tablet PO (08:36)
[2021-01-03] MEDS: spironolactone 25 mg Tablet PO (08:37)
[2021-01-03] MEDS: flecainide 100 mg Tablet 50 MG PO (08:37)
[2021-01-03] MEDS: amlodipine 5 mg Tablet 2.5 MG PO (08:37)
--- NOTE | 2021-01-03 10:12 | PC.CHAP ---
Pastoral Care Encounter/Spiritual Assessment Type of Contact [] Declined legal investigator visit [] Patient/Family/Request visit [] Outpatient visit [] Follow-up visit [] Physician referral [] Code/Alert [xx] Routine visit [] Staff referral [] Actively dying [] Patient sleeping [] Family support [] [] Out of room [] Palliative care [] [] Receiving care in room [] Pre-surgical visit [] Trauma [] Long length of stay [] ICU visit [] Other: Relational/Emotional Strength [xx] Patient feels connected with others/family/visitors/staff [] Distress [] Loneliness/isolation [] Abandonment Spirituality of Patient [xx] Person of Lorraine [xx] Attends Episcopalian of their Lorraine [xx] Believes in Prayer [xx] Reads Bible or Hindu materials [] There are Spiritual issues to be addressed Service Assistant Interventions [xx] Prayer [xx] Active listening [xx] Non-anxious presence [] Spiritual/emotional support [] Crisis/trauma care [] Spiritual counseling [] Bereavement support [] Provided bereavement packet [XXX] Provided Bible/devotional materials [] Provided toy/stuffed animal, coloring book to patient or family member [] Provided Communion [] Anointing/[place] [] Salvation [xx] Completed spiritual assessment [] Other: Impact on Illness or Injury [] Angry [] Fearful [] Anxious [] Often cries [] Exhaustion [] Unable to work [] Unable to attend amish [] Unable to walk/stand [] Unable to read [] Unable to drive [] Unable to eat/drink [] Unable to sleep [] Unable to be with family [] Patient intubated [] Other: Summary Patient feels great. She stated incision site hurts more than expected but she already feels better and expects to be discharged later today. Her dog had facial surgery a few days ago and she is worried about him. Spouse will pick her up when discharged. Time spent with patient 7 minutes
--- NOTE | 2021-01-03 10:17 | PC.NURSE ---
Bedside report received from Kiki ANDRADE. Patient is sitting up in bed reading her pacemaker brochure. She is A & O x4, has no C/O of pain or other needs at this time. Nurse to continue to monitor.
[2021-01-03 13:59] VITALS: BP 142/82; PULSE 88; RESP 19; TEMP 36.7; O2SAT 97
== END 2021-01-03 14:26 | disposition home or self-care (01) ==
LOC: CCL 06:13 → CSU 08:00
PROVIDERS: PCP Family Medicine; Visit Provider Internal Medicine Cardiovascular Disease
DX: I49.5 Sick sinus syndrome (principal); I48.91 Unspecified atrial fibrillation; I44.0 Atrioventricular block, first degree; Z87.891 Personal history of nicotine dependence; I11.0 Hypertensive heart disease with heart failure; I50.9 Heart failure, unspecified; E78.5 Hyperlipidemia, unspecified
CPT/HCPCS: 33208; 36415; 71045; 85610; 93005; 97165; C1769; C1779; C1786; C1894; C1898; J0690; J2250; J3010; J7030; J7050; J7799; Q9967

== ENCOUNTER 2021-07-29 13:12 | Outpatient (CLI) | payer MEDICARE, SELFPAY ==
--- NOTE | 2021-07-29 13:30 | USCV_ITS ---
Karime Cisse Age: 85 Gender: F : 1935 Exam Date: 07/29/2021 13:29 Ordering Phys: Frances Tesfaye Technologist: Keke Rodriguez Exam Location: [facility] [place] Indication: PAIN IN LEGS Risk Factors: Unknown Previous Vascular Surgery: STENT IN LT LEG RIGHT LEFT BP: 121.0 / 85.00 BP: 120.0/ 78.00 0 0 Waveform Velocity (cm/s) Velocity (cm/s) Waveform Biphasic 140.6 Iliac Prox 125.9 Biphasic Biphasic 102.2 Iliac Mid 106.2 Biphasic Biphasic 72.4 Iliac Distal 81.5 Biphasic Biphasic 88.7 ENDOCRINOLOGIST 95.0 Biphasic Biphasic 67.9 SFA Prox 70.4 Biphasic Biphasic 64.8 SFA Mid 59.2 Biphasic Biphasic 72.8 SFA Dist 83.9 Biphasic Biphasic 77.8 POP 67.9 Biphasic FUGITIVE INVESTIGATOR 32.9 Monophasic Biphasic DPA 85.0 Biphasic 0.8 BEULAH 0.8 FINDINGS RT FUGITIVE INVESTIGATOR NO FLOW RT DPA 100 LT FUGITIVE INVESTIGATOR 80 LT DPA 100 resting BEULAH 0.8 on the right side and 0.8 on the left side. Mild diffuse plaques were noted in the iliac and femoral arteries bilaterally CONCLUSIONS Abnormal resting ABIs bilaterally, suggestive of mild peripheral artery disease. Possible total occlusion of the posterior tibial artery on the right side Mild diffuse plaque in the iliac and femoral arteries bilaterally Dr Alida Lambert MD [facility] (Electronically Signed) Final Date: 31 July 2021 14:38 S
== END 2021-07-29 13:13 | disposition home or self-care (01) ==
PROVIDERS: PCP Family Medicine; Visit Provider Nurse Practitioner Family
DX: I73.9 Peripheral vascular disease, unspecified (principal); M79.604 Pain in right leg; M79.605 Pain in left leg; I70.8 Atherosclerosis of other arteries
CPT/HCPCS: 93925

== ENCOUNTER 2021-08-13 10:46 | Outpatient (CLI) | payer MEDICARE, SELFPAY ==
--- NOTE | 2021-08-13 11:13 | XR_ITS ---
WS: [id number] Right knee, 3 views, 08/13/2021 Clinical Data: R KNEE PAIN Comparison: None. Findings: The right knee arthroplasty is in good position. No loosening is seen. There are no fractures or dislocations. The soft tissues are normal. XR/XR knee RT 3V* [id number] Impression: Right knee arthroplasty.
== END 2021-08-13 10:47 | disposition home or self-care (01) ==
PROVIDERS: PCP Family Medicine; Visit Provider Family Medicine
DX: M25.561 Pain in right knee (principal); Z96.651 Presence of right artificial knee joint
CPT/HCPCS: 73562

== ENCOUNTER → 2021-10-01 10:34 | Outpatient (BNVA) | payer MEDICARE, SELFPAY | PROVIDERS: PCP Family Medicine; Visit Provider Internal Medicine Cardiovascular Disease | DX: I48.20 Chronic atrial fibrillation, unspecified (principal); I11.0 Hypertensive heart disease with heart failure; Z95.0 Presence of cardiac pacemaker; E78.2 Mixed hyperlipidemia; I83.813 Varicose veins of bilateral lower extremities with pain; Z87.891 Personal history of nicotine dependence | CPT/HCPCS: 99214 ==

== ENCOUNTER → 2021-12-25 12:08 | Outpatient (BNVA) | payer MEDICARE, SELFPAY | PROVIDERS: PCP Family Medicine; Visit Provider Internal Medicine Cardiovascular Disease | DX: I73.9 Peripheral vascular disease, unspecified (principal); Z95.0 Presence of cardiac pacemaker; I49.5 Sick sinus syndrome; I48.91 Unspecified atrial fibrillation; E78.2 Mixed hyperlipidemia; I10 Essential (primary) hypertension; Z87.891 Personal history of nicotine dependence | CPT/HCPCS: 99214 ==

== ENCOUNTER 2022-01-01 06:00 | Outpatient (CLI) | payer MEDICARE, SELFPAY | END 2022-01-01 06:01 | disposition home or self-care (01) | LOC: LAB 03-19 07:23 | PROVIDERS: PCP Family Medicine; Visit Provider Family Medicine | DX: Z51.81 Encounter for therapeutic drug level monitoring (principal); E03.9 Hypothyroidism, unspecified | CPT/HCPCS: 80053; 84439; 84443; 85025 ==

== ENCOUNTER → 2022-06-29 14:55 | Outpatient (BNVA) | payer MEDICARE, SELFPAY | PROVIDERS: PCP Family Medicine; Visit Provider Internal Medicine Cardiovascular Disease | DX: I11.0 Hypertensive heart disease with heart failure (principal); I50.41 Acute combined systolic (congestive) and diastolic (congestive) heart failure; I73.9 Peripheral vascular disease, unspecified; Z95.0 Presence of cardiac pacemaker; I48.91 Unspecified atrial fibrillation; I83.813 Varicose veins of bilateral lower extremities with pain; E78.2 Mixed hyperlipidemia; Z87.891 Personal history of nicotine dependence | CPT/HCPCS: 99214 ==

== ENCOUNTER → 2023-01-04 11:10 | Outpatient (BNVA) | payer MEDICARE, SELFPAY | PROVIDERS: PCP Family Medicine; Visit Provider Internal Medicine Cardiovascular Disease | DX: I48.91 Unspecified atrial fibrillation (principal); E03.9 Hypothyroidism, unspecified; Z95.0 Presence of cardiac pacemaker; I83.813 Varicose veins of bilateral lower extremities with pain; E78.2 Mixed hyperlipidemia; I11.0 Hypertensive heart disease with heart failure; I50.9 Heart failure, unspecified; Z79.01 Long term (current) use of anticoagulants; Z87.891 Personal history of nicotine dependence | CPT/HCPCS: 99214 ==

== ENCOUNTER → 2023-03-04 16:13 | Outpatient (BNVA) | payer MEDICARE, SELFPAY | PROVIDERS: PCP Family Medicine; Visit Provider Internal Medicine Cardiovascular Disease | DX: Z45.010 Encounter for checking and testing of cardiac pacemaker pulse generator [battery] (principal) | CPT/HCPCS: 93296 ==

== ENCOUNTER → 2023-03-25 10:55 | Outpatient (BNVA) | payer MEDICARE, SELFPAY | PROVIDERS: PCP Family Medicine; Visit Provider Family Medicine | DX: E03.9 Hypothyroidism, unspecified (principal); I10 Essential (primary) hypertension; Z13.220 Encounter for screening for lipoid disorders; E55.9 Vitamin D deficiency, unspecified; Z51.81 Encounter for therapeutic drug level monitoring | CPT/HCPCS: 80053; 80061; 82306; 84439; 84443; 85025 ==

== ENCOUNTER → 2023-06-09 11:19 | Outpatient (BNVA) | payer MEDICARE, SELFPAY | PROVIDERS: PCP Family Medicine; Visit Provider Internal Medicine Cardiovascular Disease | DX: Z45.010 Encounter for checking and testing of cardiac pacemaker pulse generator [battery] (principal) | CPT/HCPCS: 93296 ==

== ENCOUNTER → 2023-09-23 16:39 | Outpatient (BNVA) | payer MEDICARE, SELFPAY | PROVIDERS: PCP Family Medicine; Visit Provider Internal Medicine Cardiovascular Disease | DX: Z45.010 Encounter for checking and testing of cardiac pacemaker pulse generator [battery] (principal) | CPT/HCPCS: 93296 ==

== ENCOUNTER → 2023-09-28 15:43 | Outpatient (BNVA) | payer MEDICARE, SELFPAY | PROVIDERS: PCP Family Medicine; Visit Provider Internal Medicine Cardiovascular Disease | DX: R06.02 Shortness of breath (principal) | CPT/HCPCS: 36415; 80048; 83880; 99214 ==

== ENCOUNTER → 2024-05-23 07:54 | Outpatient (BNVA) | payer MEDICARE, SELFPAY | PROVIDERS: PCP Family Medicine; Referring Provider Family Medicine; Visit Provider Nurse Practitioner Family | DX: L21.8 Other seborrheic dermatitis (principal); L82.1 Other seborrheic keratosis; L57.8 Other skin changes due to chronic exposure to nonionizing radiation; L81.4 Other melanin hyperpigmentation; D22.4 Melanocytic nevi of scalp and neck; Z08 Encounter for follow-up examination after completed treatment for malignant neoplasm; Z85.828 Personal history of other malignant neoplasm of skin; L57.0 Actinic keratosis | CPT/HCPCS: 17000; 99204 ==

== ENCOUNTER → 2024-09-19 10:31 | Outpatient (BNVA) | payer MEDICARE, SELFPAY | PROVIDERS: PCP Family Medicine; Visit Provider Internal Medicine Cardiovascular Disease | DX: I48.91 Unspecified atrial fibrillation (principal); E78.2 Mixed hyperlipidemia; Z95.0 Presence of cardiac pacemaker; I83.93 Asymptomatic varicose veins of bilateral lower extremities; I11.0 Hypertensive heart disease with heart failure; I50.9 Heart failure, unspecified; Z79.01 Long term (current) use of anticoagulants | CPT/HCPCS: 99214 ==

== ENCOUNTER 2024-12-21 12:50 | Outpatient (CLI) | payer MEDICARE, SELFPAY ==
--- NOTE | 2024-12-21 13:02 | XR_ITS ---
WS: [id number] Left knee, 3 views, 12/21/2024 Clinical Data: Left knee xray Comparison: None. Findings: No fractures or dislocations are seen. There is medial and lateral joint compartment narrowing with spurring of the medial tibial plateau and the medial and lateral femoral condyles. The left patella shows posterior and anterior spurring with narrowing of the joint space. The soft tissues are unremarkable. XR/XR knee LT 3V* [id number] Impression: Severe osteoarthritis of the left knee.
== END 2024-12-21 12:51 | disposition home or self-care (01) ==
PROVIDERS: PCP Family Medicine; Visit Provider Family Medicine
DX: M17.12 Unilateral primary osteoarthritis, left knee (principal)
CPT/HCPCS: 73562

== ENCOUNTER → 2025-03-20 15:35 | Outpatient (BNVA) | payer MEDICARE, SELFPAY | PROVIDERS: PCP Family Medicine; Visit Provider Internal Medicine Cardiovascular Disease | DX: I48.91 Unspecified atrial fibrillation (principal); I10 Essential (primary) hypertension; I83.93 Asymptomatic varicose veins of bilateral lower extremities; Z79.01 Long term (current) use of anticoagulants | CPT/HCPCS: 99214 ==

== ENCOUNTER 2025-04-22 10:21 | Emergency (ER) | payer MEDICARE, SELFPAY ==
--- NOTE | 2025-04-22 10:22 | USR_ITS ---
PROCEDURE INFORMATION: Exam: US Duplex Left Lower Extremity Veins, Limited Exam date and time: 04/22/2025 11:03 AM Age: 89 years old Clinical indication: Pain; Leg, lower; Left; Additional info: Leg pain TECHNIQUE: Imaging protocol: Real-time duplex ultrasound of the left extremity with 2-D quiñonez scale, color Doppler flow and spectral waveform analysis including responses to compression and other maneuvers (when performed) with image documentation. Limited exam focused on the left lower extremity veins. COMPARISON: CR XR knee LT 3V* [id number] 12/21/2024 1:08 PM FINDINGS: Left deep veins: Unremarkable. The common femoral, femoral, proximal profunda femoral, popliteal, and imaged calf veins appear patent without thrombus. Normal Doppler waveforms. Normal compressibility and/or augmentation response. Superficial veins: Greater saphenous vein at the saphenofemoral junction is patent without thrombus. Soft tissues: There is a fluid collection in the left popliteal fossa measuring 3.5 x 2.0 x 7.0 cm. US/[place] [id number] IMPRESSION: 1. No evidence of deep vein thrombosis. 2. Fluid collection in the left popliteal fossa measuring 3.5 x 2.0 x 7.0 cm, suspicious for a Diaz's/popliteal cyst.
--- OUTSIDE RECORDS SUMMARY | 2025-04-22 10:26 | XMS_ITS | Clinical Summary ---
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
--- OUTSIDE RECORDS SUMMARY | 2025-04-22 10:26 | XMS_ITS | Encounter Summary ---
[facility] Organization [facility] Address [address] [place] [address] Care Team Providers Care Leaf Tier Name Role Phone Luz Maria Mathews MD, Stewart Schumacher Primary Care Provider Unavailable Encounter Details Date Type Department Care Team (Latest Contact Info) Description 01/05/2005 Outpatient Historical [facility] [address] [place] [id number] Davy Winn MD NO ADDRESS ON FILE CALCULUS OF URETER (Primary Dx) Social History Tobacco Use Types Packs/Day Years Used Date Smoking Tobacco: Never Assessed Comments Unknown Sex and Gender Information Value Date Recorded Sex Assigned at Not on file Legal Sex Female 6:28 AM EMS EDUCATOR Gender Identity Not on file Sexual Orientation Not on file documented as of this encounter Plan of Treatment Not on file documented as of this encounter Visit Diagnoses Diagnosis Calculus of ureter- Primary documented in this encounter Care Teams Leaf Tier Relationship Specialty Start Date End Date Stewart Loera Jr., MD NO ADDRESS ON FILE PCP - General 01/01/05 documented as of this encounter
--- OUTSIDE RECORDS SUMMARY | 2025-04-22 10:26 | XMS_ITS | Encounter Summary ---
Author Organization [facility] Address [address] [place] [address] Care Team Providers Care Front Line Leader Name Role Phone Luz Maria Mathews MD, Stewart Schumacher Primary Care Provider Unavailable Encounter Details Date Type Department Care Team (Latest Contact Info) Description 01/01/2005 Outpatient Historical [facility] Imaging and Laboratory Services 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
--- OUTSIDE RECORDS SUMMARY | 2025-04-22 10:26 | XMS_ITS | Encounter Summary ---
Author Organization [facility] Address [address] [place] [address] Care Team Providers Care Nurse Consultant Name Role Phone Luz Maria Mathews MD, Stewart Schumacher Primary Care Provider Unavailable Encounter Details Date Type Department Care Team (Latest Contact Info) Description 01/01/2005 Outpatient Historical [facility] Urology- [place] 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
--- OUTSIDE RECORDS SUMMARY | 2025-04-22 10:26 | XMS_ITS | Encounter Summary ---
Author Organization [facility] Address [address] [place] [address] Care Team Providers Care Budget Accountant Name Role Phone Luz Maria Mathews MD, Stewart Schumacher Primary Care Provider Unavailable Encounter Details Date Type Department Care Team (Latest Contact Info) Description 01/07/2005 Outpatient Historical [facility] Imaging Services [address] 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 Gender Identity Not on file Sexual Orientation Not on file documented as of this encounter Plan of Treatment Not on file documented as of this encounter Procedures Procedure Name Priority Date/Time Associated Diagnosis Comments POC CREATININE Routine 01/07/2005 11:04 AM CDT documented in this encounter Results * POC CREATININE (01/07/2005 11:04 AM CDT) CREATININE POC 0.9 0.7 - 1.2 mg/dL INTERFACE SYSTEM 01/07/2005 11:0 4 AM CDT us Davy Winn MD POINT OF CARE TESTING Final Result INTERFACE SYSTEM Refer to clinic/hospital department documented in this encounter Visit Diagnoses Diagnosis Calculus of kidney- Primary documented in this encounter Care Teams Budget Accountant Relationship Specialty Start Date End Date Stewart Loera Jr., MD NO ADDRESS ON FILE PCP - General 01/01/05 documented as of this encounter
--- OUTSIDE RECORDS SUMMARY | 2025-04-22 10:26 | XMS_ITS | Encounter Summary ---
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
--- OUTSIDE RECORDS SUMMARY | 2025-04-22 10:26 | XMS_ITS | Encounter Summary ---
Author Organization [facility] Address [address] [place] [address] Care Team Providers Care Fuel Conversion Technician Name Role Phone Luz Maria Mathews MD, Stewart Schumacher Primary Care Provider Unavailable Encounter Details Date Type Department Care Team (Latest Contact Info) Description 01/31/1998 Outpatient Historical 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
--- OUTSIDE RECORDS SUMMARY | 2025-04-22 10:26 | XMS_ITS | Encounter Summary ---
Author Organization [facility] Address [address] [place] [address] Care Team Providers Care Hat Stock Laminating Machine Operator Name Role Phone Luz Maria Mathews MD, Stewart Schumacher Primary Care Provider Unavailable Encounter Details Date Type Department Care Team (Latest Contact Info) Description 01/05/2005 Outpatient Historical [facility] Urology- [place] 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
--- OUTSIDE RECORDS SUMMARY | 2025-04-22 10:26 | XMS_ITS | Clinical Summary ---
Author Organization [employer] Address [address] Attn: [place] [address] Care Team Providers Care Aircraft Charter Dispatcher Name Role Phone Gurwinder Cotton MD Primary Care Provider [phone] Active Problems Patient Care Coordination No te Formatting of this note migh t be different from the original. PCP reselection in progress June 2021. 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
--- NOTE | 2025-04-22 10:30 | ED_ITS ---
HPI - General Adult General: Chief complaint: Extremity Problem,Nontraumatic Stated complaint: knots in bend of L leg, urgent care sent Time Seen by Provider: 04/22/25 10:22 Source: patient Mode of arrival: ambulatory Limitations: no limitations History of Present Illness: 89-year-old female states that she notic ed she had some knots hard areas on her left lower leg. States she has some slight pain in them. Denies any fevers here by urgent care rule out DVT. She denies any shortness of breath. Related Data Home Medications ?Medication ?Instructions ?Recorded ?Confirmed acetaminophen 500 mg capsule 500 mg PO QID PRN Pain 04/22/25 metoprolol tartrate 50 mg tablet 50 mg PO BID 04/22/25 04/22/25 potassium chloride 10 mEq 10 meq PO DAILY 04/22/25 tablet,extended release rivaroxaban 20 mg tablet (Xarelto) 20 mg PO QPM 04/22/25 spironolactone 25 mg tablet 25 mg PO DAILY 04/22/25 Previous Rx's ?Medication ?Instructions ?Recorded cholecalciferol (vitamin D3) 50 50 mcg PO DAILY #30 ca ps 03/31/23 mcg (2,000 unit) capsule levothyroxine 75 mcg tablet See Rx Instructions .Route 09/19/24 .COMPLEX #90 tabs furosemide 20 mg tablet (Lasix) 20 mg PO QAM #90 tabs 03/20/25 Allergies Allergy/AdvReac Type Severity Reaction Status Date / Time codeine (From [facility] with Allergy ALGY-Difficulty Verified 04/22/25 10:36 Codeine) Breathing pseudoephedrine (From Allergy ALGY-Difficulty Verified 04/22/25 10:36 Sudafed) Breathing evelia AdvReac Unknown hives Verified 04/22/25 10:36 [facility] ED PFSH: Medical History (Updated 04/22/25 @ 11:30 by Trung Balderas MD) History of 2019 novel coronavirus disease (COVID-19) Sick sinus syndrome Varicose veins of bilateral lower extremities with pain CHF (congestive heart failure) last echocardiogram 12/2016, LVEF 65%, no valvular abnormality. 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 Family/Other CAD (coronary artery disease) Dad's brother had a heart attack in his 30s Cancer Diabetes Son Atrial fibrillation, Onset Age: 35 Sister Cancer Other Family history of premature coronary artery disease Hypertension Denies family history of Clotting disorder Dementia Chronic kidney disease (CKD) Suicide Anesthesia complication Bleeding disorder Lung disease Stroke Social History Smoking and tobacco/nicotine status: never used tobacco/nicotine Alcohol intake: current Alcohol intake frequency: holidays/special occasions only Alcohol type: wine Substance/Drug Use: never Physical Exam Const: COMMON NORMALS: no acute distress, patient oriented x3 and healthy appearing HENMT: COMMON NORMALS: normocephalic and atraumatic HEAD & SCALP: normocephalic and atraumatic Neck/C-Spine: COMMON NORMALS: full ROM and supple Chest: COMMONS NORMALS: normal inspection of the chest Resp: COMMON NORMALS: normal respiratory effort Cardio: COMMON NORMALS: regular rate, regular rhythm and No murmurs present (Cardio) RATE: regular rate RHYTHM: regular rhythm Extremity: COMMON NORMALS: full ROM NARRATIVE EXTREMITY EXAM: Varicose veins noted to the left leg with likely superficial thrombophlebitis Neuro: COMMON NORMALS: patient oriented x3, moves all extremities and no focal motor deficits Psych: COMMON NORMALS: mental status grossly normal, Normal thought process present and cooperative THOUGHT PROCESS: Normal thought process present Skin: COMMON NORMALS: no rashes or lesions noted and no wounds GENERAL SKIN EXAM: no rashes or lesions noted Course Vital Signs: Vital signs: Vital Signs Temperature 98.4 F 04/22/25 10:34 Pulse Rate 99 04/22/25 10:34 Respiratory Rate 18 04/22/25 10:34 Blood Pressure 120/89 04/22/25 10:34 Pulse Oximetry 96 04/22/25 10:34 Oxygen Delivery Me thod Room Air 04/22/25 10:34 [facility] - General Adult Medical Decision Making 89-year-old female presented here with some swelling behind her left knee differential includes DVT, superficial thrombophlebitis, Diaz's cyst. Ultrasound here showed no signs of DVT does have a Diaz's cyst she is well- appearing here distal pulses are intact no signs of arterial occlusion she is stable for discharge follow-up PCP return if worsening. Medical Records I reviewed the patient's medical records. Lab Data Radiology Impressions Venous Duplex 04/22/25 10:22 IMPRESSION: 1. No evidence of deep vein thrombosis. 2. Fluid collection in the left popliteal fossa measuring 3.5 x 2.0 x 7.0 cm, suspicious for a Diaz's/popliteal cyst. All radiology interpretation(s) finalized by discharge Discharge Plan Discharge Patient Disposition: Home Clinical Impression: Diaz's cyst Qualifiers: Laterality: left Qualified Code(s): M71.22 - Synovial cyst of popliteal space [Diaz], left knee Condition: Stable Prescriptions: No Action acetaminophen 500 mg capsule 500 mg PO QID PRN (Reason: Pain) furosemide [Lasix] 20 mg tablet 20 mg PO QAM Qty: 90 3RF cholecalciferol (vitamin D3) 50 mcg (2,000 unit) capsule 50 mcg PO DAILY Qty: 30 6RF levothyroxine 75 mcg tablet See Rx Instructions .ROUTE .COMPLEX Qty: 90 3RF Dose Instruction: TAKE ONE TABLET BY MOUTH EACH MORNING 30 MINUTES PRIOR TO BREAKFAST. TAKE WITH WATER ONLY. Rx Instructions: TAKE ONE TABLET BY MOUTH EACH MORNING 30 MINUTES PRIOR TO BREAKFAST. TAKE WITH WATER ONLY. potassium chloride 10 mEq tablet extended release 10 meq PO DAILY spironolactone 25 mg tablet 25 mg PO DAILY metoprolol tartrate 50 mg tablet 50 mg PO BID Xarelto 20 mg tablet 20 mg PO QPM Discharge Orders: Discharge ED (Routine); Ordered 04/22/25 Ordered By: Trung Balderas Referrals: Gurwinder Cotton MD [Primary Care Provider, Family Practice] - 4-7 days Discharge Diet: Advance as tolerated Discharge Activity: Resume usual activity Patient Instructions: Diaz Cyst (ED) Print Language: [place] Coding Level of Care Code ED Supervisor Cytology for Hermelinda Sanchez
[2025-04-22 10:34] VITALS: BP 120/89; PULSE 99; RESP 18; TEMP 36.9; O2SAT 96
[2025-04-22 11:35] VITALS: BP 114/84; PULSE 90; O2SAT 97
== END 2025-04-22 11:36 | disposition home or self-care (01) ==
PROVIDERS: Emergency Provider Emergency Medicine; PCP Family Medicine
DX: M71.22 Synovial cyst of popliteal space [Baker], left knee (principal); E78.5 Hyperlipidemia, unspecified; I11.0 Hypertensive heart disease with heart failure; I50.9 Heart failure, unspecified; Z95.0 Presence of cardiac pacemaker
CPT/HCPCS: 93971; 99284